=== PATIENT | female | born 1990 | race Caucasian/White ===

== ENCOUNTER 2017-08-30 07:43 | Outpatient (CLI) | payer SELFPAY | END 2017-08-30 07:44 | disposition home or self-care (01) | LOC: BICULT 07:43 | DX: N63.11 Unspecified lump in the right breast, upper outer quadrant (principal) ==

== ENCOUNTER → 2017-09-12 | Outpatient (CLI) | payer OTHER | LOC: BICULT 12:48 → EDSTATUS 13:00 → BICULT 15:26 | DX: C50.412 Malignant neoplasm of upper-outer quadrant of left female breast (principal) | CPT/HCPCS: 19100; 76942; 77066; 88305; 88341; 88342; G0279 ==

== ENCOUNTER 2017-10-09 10:35 | Outpatient (CLI) | payer MEDICAID ==
[2017-10-09 11:45] LABS: #Basophils 0.1 thou/uL (0.0-0.2); #Eosinphils 0.2 thou/uL (0.0-0.7); #Lymphocytes 2.8 thou/uL (1.20-3.40); #Monocytes 0.7 thou/uL (0.11-0.59); #Neutrophils 7.9 thou/uL (1.40-6.50); %Basophils 0.9 % (0.0-1.0); %Eosinophils 1.4 % (0.0-10.0); %Monocytes 6.2 % (0.0-10.0); %Neutrophils 67.5 % (42.0-75.0); Hemoglobin 13.9 g/dL (12.0-16.0); Mean Corpuscular HGB CONC 32.9 g/dL (32.0-36.0); Mean Corpuscular Hemoglobin 29.8 pg (27.0-31.0); Mean Corpuscular Volume 90.6 fl (81.0-99.0); Mean Platelet Volume 7.7 fL (7.4-10.4); Platelet Count 293 thou/uL (130-400); RBC Distribution Width 12.7 % (11.5-14.5); Red Blood Cell (RBC) Count 4.67 mill/uL (4.20-5.40); White Blood Cell (WBC) Count 11.7 thou/uL (4.8-10.8)
[2017-10-09 11:54] LABS: BHCG - Serum Negative (NEGATIVE); Pregs Control Background? CLEAR/WHITE (CLR/WHITE); Pregs Control Bar Appear? YES (CONTROL BAR)
[2017-10-09 12:01] LABS: Anion Gap 11 mmol/L (10-20); BUN (Urea Nitrogen) 8 mg/dL (7.0-18.7); Calc. Creatinine Clearance 0 mL/min (70-130); Calcium 9.5 mg/dL (7.8-10.44); Carbon Dioxide 23 mmol/L (22-29); Chloride 106 mmol/L (98-107); Estimated GFR-MDRD Greater than 90; Glucose 86 mg/dL (70-105); Potassium 3.6 mmol/L (3.5-5.1); Sodium 136 mmol/L (136-145)
== END 2017-10-09 10:36 | disposition home or self-care (01) ==
LOC: LABBT 10:35
PROVIDERS: ATTEND Surgery
DX: Z01.812 Encounter for preprocedural laboratory examination (principal); C50.912 Malignant neoplasm of unspecified site of left female breast
CPT/HCPCS: 80048; 84703; 85025; 88173

== ENCOUNTER 2017-10-11 08:19 | Day surgery (SDC) | payer MEDICAID ==
[2017-10-09 10:59] VITALS: BMI 27.4
[2017-10-11] MEDS ORDERED: Bupivacaine/Epinephrine 0.25% 30 ML VIAL ONE (10:00)
[2017-10-11] MEDS ORDERED: Lidocaine 2% 10 ML INJ ONE (10:00)
[2017-10-11] MEDS ORDERED: Midazolam HCl 2 mg/2 ml Vial ONE (10:01)
[2017-10-11] MEDS ORDERED: CEFAZOLIN/Water 2 GM/20 ML SYRINGE ONE (10:02)
[2017-10-11] MEDS ORDERED: Ketorolac Tromethamine 30 MG/ML VIAL ONE (10:02)
[2017-10-11] MEDS ORDERED: Propofol 500 MG/50 ML VIAL ONE (10:03)
[2017-10-11] MEDS ORDERED: Fentanyl 100 MCG/2 ML VIAL ONE (10:03)
[2017-10-11] MEDS ORDERED: Dexamethasone 20 MG/5 ML VIAL ONE (13:31)
[2017-10-11] MEDS ORDERED: Ondansetron HCl/PF 4 MG/2 ML Vial ONE (13:31)
--- NOTE | 2017-10-11 14:19 | RAD ---
CHEST 1 VIEW: HISTORY: MediPort placement. FINDINGS: Cardiac silhouette is magnified. Pulmonary vasculature is accentuated by shallow inspiration. Media stinum is midline. The tip of a right subclavian central venous catheter projects over the superior vena cava. No evidence of pneumothorax. IMPRESSION: Right subclavian MediPort is in good radiographic position. POS: [facility]
--- NOTE | 2017-10-11 16:15 | PDOC.OP ---
Operative Note - Operative Note Operative Note: PROCEDURE: Right subclavian MediPort placement with fluoroscopic guidance, and left axillary lymph node clip placement with ultrasound guidance SURGEON: Brad Berumen M.D. DATE OF PROCEDURE: 10/12/27 PREOPERATIVE DIAGNOSIS: T2 N1 invasive ductal carcinoma of the left breast POSTOPERATIVE DIAGNOSIS: T2 N1 invasive ductal carcinoma of the left breast HISTORY: Patient is diagnosed with left breast cancer. Neoadjuvant chemotherapy has been recommended and the oncologist has requested MediPort placement for this. FNA of an enlarged left axillary lymph node was positive and I recommended clip placement to johnathon this lymph node for later pathologic examination at the time of her definitive surgery. OPERATIVE PROCEDURE IN DETAIL: After informed consent was obtained and appropriate preoperative antibiotics were administered, the patient was taken to the operating room and placed in supine position and monitored anesthesia care was administered. The patient was then placed in Trendelenburg position and the subclavian vein accessed easily on the first attempt with excellent flow of dark venous non-pulsatile blood. A wire threaded easily and was confirmed to be in the superior vena cava by fluoroscopy. Additional local anesthesia was infused to the skin and subcutaneous tissues lateral and inferior to the access site. The skin incision was extended from the wire laterally and a subcutaneous pocket developed inferiorly. A Mediport was obtained and confirmed to fit in the subcutaneous pocket. This was secured inferiorly to the pectoralis fascia with a Prolene suture, which was clamped, but not tied. The dilator and sheath were then placed over the wire and the dilator and wire removed leaving the sheath in place. The clamped MediPort tubing was tunneled through the sheath, which was then split and removed leaving the MediPort tubing in place. The tubing was adjusted until the tip was confirmed by fluoroscopy to be in the superior vena cava just above the atrium. The tubing was clamped at the skin level and cut and the tubing secured to the port, which was then placed in the subcutaneous pocket. The previously placed suture was secured and an additional suture placed to fix the port in place within the pocket. The port was aspirated with the Gray needle and had excellent flow of dark venous non-pulsatile blood and easily flushed without resistance. The subcutaneous tissues were closed with a running Monocryl suture, following which the skin was closed with a running subcuticular Monocryl suture. Dermabond dressings were placed and the hub was again accessed through the skin and confirmed to easily aspirate and easily flush. The course of the catheter was confirmed by fluoroscopy to be smooth with the tip appropriately located in the superior vena cava. Attention was then turned to the clip placement of the left axillary node. The node was identified using a sterile ultrasound probe and local anesthesia infused the skin and subcutaneous tissues superior to this. A small skin incision was made and the biopsy clip device advanced to the enlarged lymph node and deployed. The clip appeared to be in good position immediately anterior to the lymph node. Dermabond was placed at the skin incision. The patient was taken her back to the day stay unit in good condition. Estimated blood loss was minimal. There were no complications. There were no specimens.
== END 2017-10-11 12:22 | disposition home or self-care (01) ==
LOC: SDC 08:19
PROVIDERS: ATTEND Surgery
PROC: BH47ZZZ Ultrasonography of Upper Extremity (ICD-10-PCS; principal; 2017-10-11)
PROC: 02HV33Z Insertion of Infusion Device into Superior Vena Cava, Percutaneous Approach (ICD-10-PCS; principal; 2017-10-11)
PROC: B5181ZA Fluoroscopy of Superior Vena Cava using Low Osmolar Contrast, Guidance (ICD-10-PCS; principal; 2017-10-11)
DX: C50.912 Malignant neoplasm of unspecified site of left female breast (principal); F32.9 Major depressive disorder, single episode, unspecified; F60.3 Borderline personality disorder; F17.210 Nicotine dependence, cigarettes, uncomplicated; D64.9 Anemia, unspecified; R56.9 Unspecified convulsions; Z17.0 Estrogen receptor positive status [ER+]; Z79.899 Other long term (current) drug therapy; Z88.0 Allergy status to penicillin; Z91.040 Latex allergy status; Z98.890 Other specified postprocedural states
CPT/HCPCS: 71045; C1788; J0131; J1100; J1642; J1885; J2250; J2405; J2704; J3010

== ENCOUNTER 2017-10-17 09:00 | Day surgery (SDC) | payer MEDICAID ==
[2017-10-17] MEDS ORDERED: Sodium Chloride 0.9% 40 ML ONE (09:11)
[2017-10-17] MEDS ORDERED: Fosaprepitant Dimeglumine 150 MG, Admixture Fee 1 EACH in Sodium Chloride 0.9% 250 ML 1... IVPB SCH (09:15)
[2017-10-17] MEDS ORDERED: PALONOSETRON HCL 0.05 MG/ML 5 ML VIAL IVP SCH (09:15)
[2017-10-17] MEDS ORDERED: Pegfilgrastim 6 MG/0.6 ML Delivery Kit SQ SCH (09:15)
[2017-10-17] MEDS ORDERED: Dexamethasone 10 MG/ML VIAL SLOW IVP SCH (09:15)
[2017-10-17] MEDS ORDERED: Cyclophosphamide 1 GM, Admixture Fee 1 EACH in Sodium Chloride 0.9% 250 ML 250 ML IVPB SCH (09:30)
[2017-10-17] MEDS ORDERED: DOXORUBICIN IVPB SCH (09:30)
[2017-10-17] MEDS ORDERED: SODIUM CHLORIDE IVPB SCH (09:30)
[2017-10-17] MEDS ORDERED: ADMIXTURE FEE IVPB SCH (09:30)
[2017-10-17 09:55] VITALS: BP 120/73; TEMP 97.9
== END 2017-10-17 13:00 | disposition home or self-care (01) ==
LOC: ONC/OP 09:00
PROVIDERS: ATTEND Internal Medicine Hematology & Oncology
DX: Z51.11 Encounter for antineoplastic chemotherapy (principal); C50.412 Malignant neoplasm of upper-outer quadrant of left female breast; F41.9 Anxiety disorder, unspecified; D63.0 Anemia in neoplastic disease; F41.8 Other specified anxiety disorders; F17.210 Nicotine dependence, cigarettes, uncomplicated; Z17.0 Estrogen receptor positive status [ER+]; Z79.899 Other long term (current) drug therapy; Z88.0 Allergy status to penicillin; Z91.040 Latex allergy status
CPT/HCPCS: 36415; 80053; 82248; 83615; 84100; 84550; 96372; 96375; 96377; 96413; 96417; A4216; J1100; J1453; J1642; J2469; J2505; J7050; J9000; J9070

== ENCOUNTER 2017-10-31 08:53 | Day surgery (SDC) | payer MEDICAID ==
[2017-10-31] MEDS ORDERED: Pegfilgrastim 6 MG/0.6 ML Delivery Kit SQ SCH (09:15)
[2017-10-31] MEDS ORDERED: Cyclophosphamide 1 GM, Admixture Fee 1 EACH in Sodium Chloride 0.9% 250 ML 250 ML IVPB SCH (09:15)
[2017-10-31] MEDS ORDERED: Dexamethasone 10 MG/ML VIAL SLOW IVP SCH (09:15)
[2017-10-31] MEDS ORDERED: PALONOSETRON HCL 0.05 MG/ML 5 ML VIAL IVP SCH (09:15)
[2017-10-31 09:26] VITALS: BP 105/59; TEMP 98.5
[2017-10-31] MEDS ORDERED: DOXORUBICIN IVPB SCH (09:30)
[2017-10-31] MEDS ORDERED: SODIUM CHLORIDE IVPB SCH (09:30)
[2017-10-31] MEDS ORDERED: ADMIXTURE FEE IVPB SCH (09:30)
[2017-10-31] MEDS ORDERED: Sodium Chloride 0.9% 50 ML ONE (09:46)
== END 2017-10-31 13:35 | disposition home or self-care (01) ==
LOC: ONC/OP 08:53
PROVIDERS: ATTEND Internal Medicine Hematology & Oncology
DX: Z51.11 Encounter for antineoplastic chemotherapy (principal); C50.412 Malignant neoplasm of upper-outer quadrant of left female breast; F41.3 Other mixed anxiety disorders; F17.210 Nicotine dependence, cigarettes, uncomplicated; Z17.0 Estrogen receptor positive status [ER+]; Z88.1 Allergy status to other antibiotic agents; Z98.890 Other specified postprocedural states
CPT/HCPCS: 36415; 80053; 82248; 83615; 84100; 84550; 96367; 96375; 96377; 96413; 96417; A4216; J1100; J1453; J1642; J2469; J2505; J7050; J9000; J9070

== ENCOUNTER 2017-11-14 10:38 | Day surgery (SDC) | payer OTHER ==
[2017-11-14] MEDS ORDERED: Sodium Chloride 0.9% 40 ML ONE (11:12)
[2017-11-14 11:27] VITALS: BP 108/73; TEMP 98.5
[2017-11-14] MEDS ORDERED: Fosaprepitant Dimeglumine 150 MG in Sodium Chloride 0.9% 100 ML IVPB SCH (11:45)
[2017-11-14] MEDS ORDERED: Cyclophosphamide 1 GM in Sodium Chloride 0.9% 250 ML 250 ML IVPB SCH (11:45)
[2017-11-14] MEDS ORDERED: SODIUM CHLORIDE 0.9% IVPB SCH (11:45)
[2017-11-14] MEDS ORDERED: Dexamethasone 10 MG/ML VIAL SLOW IVP SCH (11:45)
[2017-11-14] MEDS ORDERED: CYCLOPHOSPHAMIDE IVPB SCH (11:45)
[2017-11-14] MEDS ORDERED: PALONOSETRON HCL 0.05 MG/ML 5 ML VIAL IVP SCH (11:45)
[2017-11-14] MEDS ORDERED: DOXORUBICIN 100 MG in Sodium Chloride 0.9% 50 ML SLOW IVP SCH (11:45)
[2017-11-14] MEDS ORDERED: Pegfilgrastim 6 MG/0.6 ML Delivery Kit SQ SCH (11:45)
== END 2017-11-14 14:06 | disposition home or self-care (01) ==
LOC: ONC/OP 10:38
PROVIDERS: ATTEND Internal Medicine Hematology & Oncology
DX: Z51.11 Encounter for antineoplastic chemotherapy (principal); C50.412 Malignant neoplasm of upper-outer quadrant of left female breast; C77.3 Secondary and unspecified malignant neoplasm of axilla and upper limb lymph nodes; F41.8 Other specified anxiety disorders; F17.210 Nicotine dependence, cigarettes, uncomplicated; D64.89 Other specified anemias; Z17.0 Estrogen receptor positive status [ER+]; Z79.899 Other long term (current) drug therapy
CPT/HCPCS: 96367; 96375; 96377; 96413; 96417; A4216; J1100; J1453; J1642; J2469; J2505; J7050; J9000; J9070

== ENCOUNTER 2017-11-28 11:16 | Day surgery (SDC) | payer OTHER ==
[2017-11-28] MEDS ORDERED: Sodium Chloride 0.9% 40 ML ONE (11:28)
[2017-11-28] MEDS ORDERED: Dexamethasone 10 MG/ML VIAL SLOW IVP SCH (11:30)
[2017-11-28] MEDS ORDERED: Pegfilgrastim 6 MG/0.6 ML Delivery Kit SQ SCH (11:30)
[2017-11-28] MEDS ORDERED: PALONOSETRON HCL 0.05 MG/ML 5 ML VIAL IVP SCH (11:45)
[2017-11-28] MEDS ORDERED: Fosaprepitant Dimeglumine 150 MG in Sodium Chloride 0.9% 100 ML IVPB SCH (11:45)
[2017-11-28] MEDS ORDERED: DOXORUBICIN 100 MG in Sodium Chloride 0.9% 50 ML SLOW IVP SCH (11:45)
[2017-11-28] MEDS ORDERED: Cyclophosphamide 1 GM in Sodium Chloride 0.9% 250 ML 250 ML IVPB SCH (11:45)
[2017-11-28 12:04] VITALS: BP 119/79; TEMP 97.4
== END 2017-11-28 15:03 | disposition home or self-care (01) ==
LOC: ONC/OP 11:16
PROVIDERS: ATTEND Internal Medicine Hematology & Oncology
DX: Z51.11 Encounter for antineoplastic chemotherapy (principal); C50.412 Malignant neoplasm of upper-outer quadrant of left female breast; F41.3 Other mixed anxiety disorders; Z17.0 Estrogen receptor positive status [ER+]; Z88.0 Allergy status to penicillin; Z91.040 Latex allergy status
CPT/HCPCS: 36415; 80053; 82248; 83615; 84100; 84550; 96367; 96375; 96377; 96413; 96417; A4216; J1100; J1453; J1642; J2469; J2505; J7050; J9000; J9070

== ENCOUNTER 2017-12-12 10:57 | Day surgery (SDC) | payer OTHER ==
[2017-12-12] MEDS ORDERED: Ondansetron 2MG/ML MDV 10 MG, Dexamethasone 10 MG in Sodium Chloride 0.9% 50 ML IVP SCH (11:15)
[2017-12-12] MEDS ORDERED: PACLITAXEL IVPB SCH (11:15)
[2017-12-12] MEDS ORDERED: SODIUM CHLORIDE 0.9% IVPB SCH (11:15)
[2017-12-12] MEDS ORDERED: Sodium Chloride 0.9% 30 ML ONE (11:17)
[2017-12-12 12:08] VITALS: BP 117/71; TEMP 98.2
== END 2017-12-12 13:41 | disposition home or self-care (01) ==
LOC: ONC/OP 10:57
PROVIDERS: ATTEND Internal Medicine Hematology & Oncology
DX: Z51.11 Encounter for antineoplastic chemotherapy (principal); C50.412 Malignant neoplasm of upper-outer quadrant of left female breast; D64.89 Other specified anemias; Z88.0 Allergy status to penicillin; Z79.899 Other long term (current) drug therapy
CPT/HCPCS: 96367; 96413; A4216; J1100; J1642; J2405; J7050; J9267

== ENCOUNTER 2017-12-19 10:17 | Day surgery (SDC) | payer OTHER ==
[2017-12-19] MEDS ORDERED: Sodium Chloride 0.9% 30 ML ONE (10:25)
[2017-12-19] MEDS ORDERED: SODIUM CHLORIDE 0.9% IVPB SCH (10:30)
[2017-12-19] MEDS ORDERED: PACLITAXEL IVPB SCH (10:30)
[2017-12-19] MEDS ORDERED: Ondansetron 2MG/ML MDV 10 MG, Dexamethasone 10 MG in Sodium Chloride 0.9% 50 ML IVP SCH (10:30)
[2017-12-19 11:25] VITALS: BP 119/69; TEMP 98.7
== END 2017-12-19 12:51 | disposition home or self-care (01) ==
LOC: ONC/OP 10:17
PROVIDERS: ATTEND Internal Medicine Hematology & Oncology
DX: Z51.11 Encounter for antineoplastic chemotherapy (principal); C50.412 Malignant neoplasm of upper-outer quadrant of left female breast; D64.89 Other specified anemias; F41.3 Other mixed anxiety disorders; F17.210 Nicotine dependence, cigarettes, uncomplicated; Z88.0 Allergy status to penicillin; Z17.0 Estrogen receptor positive status [ER+]
CPT/HCPCS: 96375; 96413; A4216; J1100; J1642; J2405; J7050; J9267

== ENCOUNTER 2017-12-26 11:03 | Day surgery (SDC) | payer OTHER ==
[2017-12-26] MEDS ORDERED: SODIUM CHLORIDE 0.9% IVPB SCH (11:30)
[2017-12-26] MEDS ORDERED: Ondansetron 2MG/ML MDV 10 MG, Dexamethasone 10 MG in Sodium Chloride 0.9% 50 ML IVP SCH (11:30)
[2017-12-26] MEDS ORDERED: PACLITAXEL IVPB SCH (11:30)
[2017-12-26] MEDS ORDERED: Ondansetron 2MG/ML MDV 10 MG, Dexamethasone 4 MG in Sodium Chloride 0.9% 50 ML IVP SCH (11:45)
[2017-12-26 13:01] VITALS: BP 98/63; TEMP 98.1
== END 2017-12-26 14:29 | disposition home or self-care (01) ==
LOC: ONC/OP 11:03
PROVIDERS: ATTEND Internal Medicine Hematology & Oncology
DX: Z51.11 Encounter for antineoplastic chemotherapy (principal); C50.412 Malignant neoplasm of upper-outer quadrant of left female breast; D64.89 Other specified anemias; Z88.0 Allergy status to penicillin; Z79.899 Other long term (current) drug therapy
CPT/HCPCS: 96375; 96413; J1100; J2405; J7050; J9267

== ENCOUNTER 2018-01-02 09:29 | Day surgery (SDC) | payer OTHER ==
[2018-01-02 10:08] VITALS: BP 109/71; TEMP 98.2
[2018-01-02] MEDS ORDERED: Sodium Chloride 0.9% 40 ML ONE (10:14)
[2018-01-02] MEDS ORDERED: Dexamethasone 4 mg/ml Vial SLOW IVP SCH (10:30)
[2018-01-02] MEDS ORDERED: PACLITAXEL IVPB SCH (10:30)
[2018-01-02] MEDS ORDERED: Ondansetron HCl/PF 4 MG/2 ML Vial IVP SCH ×2 (10:30)
[2018-01-02] MEDS ORDERED: Dexamethasone 10 MG/ML VIAL SLOW IVP SCH (10:30)
[2018-01-02] MEDS ORDERED: SODIUM CHLORIDE 0.9% IVPB SCH (10:30)
[2018-01-02] MEDS ORDERED: Dexamethasone 4 MG, Ondansetron 2MG/ML MDV 10 MG in Sodium Chloride 0.9% 50 ML SLOW IVP SCH (11:00)
== END 2018-01-02 15:47 | disposition home or self-care (01) ==
LOC: ONC/OP 09:29
PROVIDERS: ATTEND Internal Medicine Hematology & Oncology
DX: Z51.11 Encounter for antineoplastic chemotherapy (principal); C50.412 Malignant neoplasm of upper-outer quadrant of left female breast; C77.3 Secondary and unspecified malignant neoplasm of axilla and upper limb lymph nodes; F41.3 Other mixed anxiety disorders; D64.89 Other specified anemias; F17.210 Nicotine dependence, cigarettes, uncomplicated; Z17.0 Estrogen receptor positive status [ER+]; Z88.0 Allergy status to penicillin
CPT/HCPCS: 96375; 96413; A4216; J1100; J1642; J2405; J7050; J9267

== ENCOUNTER 2018-01-09 10:40 | Day surgery (SDC) | payer OTHER ==
[2018-01-09] MEDS ORDERED: Sodium Chloride 0.9% 30 ML ONE (10:51)
[2018-01-09] MEDS ORDERED: PACLITAXEL IVPB SCH (11:15)
[2018-01-09] MEDS ORDERED: SODIUM CHLORIDE 0.9% IVPB SCH (11:15)
[2018-01-09] MEDS ORDERED: Ondansetron 2MG/ML MDV 10 MG, Dexamethasone 4 MG in Sodium Chloride 0.9% 50 ML IVPB SCH (11:15)
== END 2018-01-09 14:04 | disposition home or self-care (01) ==
LOC: ONC/OP 10:40
PROVIDERS: ATTEND Internal Medicine Hematology & Oncology
DX: Z51.11 Encounter for antineoplastic chemotherapy (principal); C50.412 Malignant neoplasm of upper-outer quadrant of left female breast; C77.3 Secondary and unspecified malignant neoplasm of axilla and upper limb lymph nodes; D64.89 Other specified anemias; F41.3 Other mixed anxiety disorders; F17.210 Nicotine dependence, cigarettes, uncomplicated; Z88.0 Allergy status to penicillin; Z17.0 Estrogen receptor positive status [ER+]
CPT/HCPCS: 36415; 80053; 82248; 83615; 84100; 84550; 96375; 96413; A4216; J1100; J1642; J2405; J7050; J9267

== ENCOUNTER 2018-01-23 10:03 | Day surgery (SDC) | payer OTHER ==
[2018-01-23] MEDS ORDERED: Sodium Chloride 0.9% 30 ML ONE (10:12)
[2018-01-23] MEDS ORDERED: Ondansetron 2MG/ML MDV 10 MG, Dexamethasone 4 MG in Sodium Chloride 0.9% 50 ML IVP SCH (10:15)
[2018-01-23] MEDS ORDERED: PACLITAXEL IVPB SCH (10:15)
[2018-01-23] MEDS ORDERED: SODIUM CHLORIDE 0.9% IVPB SCH (10:15)
[2018-01-23 10:54] VITALS: BP 117/73; TEMP 98.5
== END 2018-01-23 12:50 | disposition home or self-care (01) ==
LOC: ONC/OP 10:03
PROVIDERS: ATTEND Internal Medicine Hematology & Oncology
DX: Z51.11 Encounter for antineoplastic chemotherapy (principal); C50.412 Malignant neoplasm of upper-outer quadrant of left female breast; C77.3 Secondary and unspecified malignant neoplasm of axilla and upper limb lymph nodes; F41.3 Other mixed anxiety disorders; D64.89 Other specified anemias; F17.210 Nicotine dependence, cigarettes, uncomplicated; Z17.0 Estrogen receptor positive status [ER+]; Z88.0 Allergy status to penicillin
CPT/HCPCS: 96375; 96413; A4216; J1100; J1642; J2405; J7050; J9267

== ENCOUNTER 2018-01-30 10:02 | Day surgery (SDC) | payer OTHER ==
[2018-01-30] MEDS ORDERED: Sodium Chloride 0.9% 30 ML ONE (10:47)
[2018-01-30] MEDS ORDERED: PACLITAXEL IVPB SCH (11:30)
[2018-01-30] MEDS ORDERED: SODIUM CHLORIDE 0.9% IVPB SCH (11:30)
[2018-01-30] MEDS ORDERED: Dexamethasone 4 mg/ml Vial SLOW IVP SCH (11:30)
[2018-01-30] MEDS ORDERED: Ondansetron HCl/PF 4 MG/2 ML Vial SLOW IVP SCH (11:30)
[2018-01-30] MEDS ORDERED: Dexamethasone 4 MG, Ondansetron 2MG/ML MDV 10 MG in Sodium Chloride 0.9% 50 ML IVPB SCH (11:45)
[2018-01-30 12:46] VITALS: BP 111/66; TEMP 98.8
== END 2018-01-30 13:49 | disposition home or self-care (01) ==
LOC: ONC/OP 10:02
PROVIDERS: ATTEND Internal Medicine Hematology & Oncology
DX: Z51.11 Encounter for antineoplastic chemotherapy (principal); C50.412 Malignant neoplasm of upper-outer quadrant of left female breast; C77.3 Secondary and unspecified malignant neoplasm of axilla and upper limb lymph nodes; D64.89 Other specified anemias; F41.3 Other mixed anxiety disorders; F17.210 Nicotine dependence, cigarettes, uncomplicated; Z88.0 Allergy status to penicillin; Z17.0 Estrogen receptor positive status [ER+]
CPT/HCPCS: 96367; 96413; A4216; J1100; J1642; J2405; J7050; J9267

== ENCOUNTER 2018-02-06 10:33 | Day surgery (SDC) | payer OTHER ==
[2018-02-06] MEDS ORDERED: Sodium Chloride 0.9% 30 ML ONE (10:42)
[2018-02-06 10:52] VITALS: BP 118/72; TEMP 97.9
[2018-02-06] MEDS ORDERED: Dexamethasone 4 MG, Ondansetron 2MG/ML MDV 10 MG in Sodium Chloride 0.9% 50 ML SLOW IVP SCH (11:15)
[2018-02-06] MEDS ORDERED: PACLITAXEL IVPB SCH (11:15)
[2018-02-06] MEDS ORDERED: ONDANSETRON IVPB SCH (11:15)
[2018-02-06] MEDS ORDERED: SODIUM CHLORIDE 0.9% IVPB SCH ×2 (11:15)
[2018-02-06] MEDS ORDERED: DEXAMETHASONE IVPB SCH (11:15)
[2018-02-06] MEDS ORDERED: Dexamethasone 4 mg/ml Vial ONE (12:42)
[2018-02-06] MEDS: Dexamethasone 4 mg/ml Vial ONE (12:54)
[2018-02-06] MEDS ORDERED: diphenhydrAMINE 50 MG/ML VIAL IVP SCH (13:00)
[2018-02-06] MEDS ORDERED: Dexamethasone 10 MG/ML VIAL SLOW IVP SCH (13:00)
[2018-02-06] MEDS ORDERED: Sodium Chloride 0.9% 1,000 ML IV SCH (13:00)
[2018-02-06] MEDS ORDERED: Sodium Chloride 0.9% 10 ML ONE (13:26)
== END 2018-02-06 13:45 | disposition home or self-care (01) ==
LOC: ONC/OP 10:33
PROVIDERS: ATTEND Internal Medicine Hematology & Oncology
DX: Z51.11 Encounter for antineoplastic chemotherapy (principal); C50.412 Malignant neoplasm of upper-outer quadrant of left female breast; D64.89 Other specified anemias; F17.200 Nicotine dependence, unspecified, uncomplicated; Z88.0 Allergy status to penicillin; Z79.899 Other long term (current) drug therapy
CPT/HCPCS: 96375; 96413; 99212; A4216; G0463; J1100; J1642; J2405; J7050; J9267

== ENCOUNTER 2018-02-20 07:34 | Day surgery (SDC) | payer OTHER ==
[2018-02-14 10:48] VITALS: BMI 27.4
[2018-02-20] MEDS ORDERED: Lidocaine-Prilocaine 2.5% Cream 5 GM TUBE ONE (08:11)
[2018-02-20] MEDS ORDERED: CEFAZOLIN/Water 2 GM/20 ML SYRINGE ONE (08:45)
[2018-02-20] MEDS ORDERED: Bupivacaine/Epinephrine 0.25% 30 ML VIAL ONE ×2 (10:47→14:27)
[2018-02-20] MEDS ORDERED: Lidocaine 2% 10 ML INJ ONE (10:47)
[2018-02-20] MEDS ORDERED: Fentanyl 100 MCG/2 ML VIAL ONE ×2 (10:55→15:21)
[2018-02-20] MEDS ORDERED: Dexamethasone 20 MG/5 ML VIAL ONE (15:24)
[2018-02-20] MEDS ORDERED: Glycopyrrolate 0.2 MG/ML 5 ML SYRINGE ONE (15:24)
[2018-02-20] MEDS ORDERED: Ondansetron HCl/PF 4 MG/2 ML Vial ONE (15:24)
[2018-02-20] MEDS ORDERED: Lidocaine 1% PF 5 ML VIAL ONE (15:24)
[2018-02-20] MEDS ORDERED: PROPOFOL 200 MG/20 ML VIAL ONE (15:24)
[2018-02-20] MEDS ORDERED: PHENYLEPHRINE-NS 100 MCG/ML 10 ML SYRINGE ONE (15:24)
[2018-02-20] MEDS ORDERED: Morphine 4 MG/ML VIAL ONE (16:13)
[2018-02-20] MEDS ORDERED: HYDROcodone/Acetaminophen 5/325 mg Tablet ONE (16:56)
[2018-02-20] MEDS ORDERED: Sodium Chloride 0.9% 10 ML ONE (17:35)
--- NOTE | 2018-02-26 16:15 | PDOC.OP ---
Operative Note - Operative Note Operative Note: PROCEDURE: Left breast lumpectomy and axillary dissection. DATE OF PROCEDURE: 02/20/2018. SURGEON: Brad Berumen M.D. PREOPERATIVE DIAGNOSES: Breast cancer, node positive, status post neoadjuvant chemotherapy POSTOPERATIVE DIAGNOSIS: Breast cancer, node positive, status post neoadjuvant chemotherapy HISTORY: Patient is diagnosed with invasive ductal cancer of the left breast, which was lymph node positive by FNA.. She has decided to undergo breast conservation therapy. Axillary dissection was recommended due to known positive lymph node. PROCEDURE IN DETAIL: Informed consent was obtained and appropriate preoperative antibiotics administered. The patient was taken to the operating room and placed in supine position and anesthesia was administered. She was then prepped and draped in the standard sterile fashion and local anesthesia infused the skin and subcutaneous tissues of the axilla. An incision was made over the lower edge of the hair-bearing skin of the axilla and dissection carried down to the true axilla. Dissection was carried down to the axillary vein which was identified. The lymph node bearing tissue was swept down off of the chest wall until the long thoracic nerve was encountered. This was carefully dissected free of the axillary tissues and preserved. The latissimus dorsi muscle was then exposed laterally and the long thoracic nerve and vein identified and dissected free of the axillary tissue laterally, preserving both the structures. The node bearing tissue was then swept inferiorly and dissected free , with division of a few intercostal brachial nerves which were traversing through the tissue. The long thoracic and thoracodorsal nerves were gently stimulated with DeBakey forceps and confirmed to cause contraction of their corresponding muscles. The axillary wound was irrigated and examined for hemostasis which was excellent. No additional palpable lymph nodes were palpated in the axilla. A KAYCEE drain was placed and secured to the skin. Additional local anesthesia was infused circumferentially for postoperative pain management and the subcutaneous tissues were closed with 3-0 Monocryl suture and the skin closed with 4-0 subcuticular Monocryl suture. Attention was then turned to the lumpectomy. The margins of the mass were identified by ultrasound and marked on the skin. Local anesthesia was infused circumferentially. An incision was made over the mass and flaps raised through the subcutaneous tissues. The breast tissue surrounding the mass was then excised maintaining a distance of about 2-3 cm from the palpable mass in all directions. The specimen was removed and oriented for pathology with a long lateral, short superior, and looped superficial suture. The wound was palpated and some thickened and slightly nodular tissue identified in the deep inferior wound, so an additional margin was taken from this area. This was also oriented with a long lateral short superior and looped superficial suture and sent as a separate specimen. The wound was irrigated and hemostasis obtained with Bovie electrocautery. Additional local anesthesia was infused for postoperative pain management and the subcutaneous tissues were reapproximated with 3-0 Monocryl sutures. Additional local anesthesia was infused into the biopsy cavity and the skin was closed with 4-0 subcuticular Monocryl sutures. Dermabond was placed to both incisions. Estimated blood loss minimal. There were no complications. SPECIMENS: Left breast mass with extended inferior posterior margin, and left axillary contents
== END 2018-02-20 18:13 | disposition home or self-care (01) ==
LOC: SDC 07:34
PROVIDERS: ATTEND Surgery
PROC: 07T60ZZ Resection of Left Axillary Lymphatic, Open Approach (ICD-10-PCS; principal; 2018-02-20)
PROC: 0HBU0ZZ Excision of Left Breast, Open Approach (ICD-10-PCS; principal; 2018-02-20)
DX: C50.812 Malignant neoplasm of overlapping sites of left female breast (principal); C77.3 Secondary and unspecified malignant neoplasm of axilla and upper limb lymph nodes; F60.3 Borderline personality disorder; F32.9 Major depressive disorder, single episode, unspecified; F17.210 Nicotine dependence, cigarettes, uncomplicated; Z92.21 Personal history of antineoplastic chemotherapy; Z17.0 Estrogen receptor positive status [ER+]; Z79.899 Other long term (current) drug therapy; Z88.0 Allergy status to penicillin; Z88.8 Allergy status to other drugs, medicaments and biological substances; Z91.041 Radiographic dye allergy status
CPT/HCPCS: 88305; 88307; 88309; 96374; J1100; J1642; J2001; J2270; J2405; J2704; J3010

== ENCOUNTER 2018-07-27 16:10 | Emergency (ER) | payer OTHER ==
[2018-07-27 16:48] LABS: Bilirubin Negative (Negative); Blood, Urine Negative (Negative); Clarity CLOUDY (Clear); Glucose, Urine (Dipstick) Negative (Negative); Leukocyte Negative (Negative); Nitrite Negative (Negative); Protein, Urine (Dipstick) Negative (Neg-Trace); Urobilinogen 0.2 mg/dL (0.2-1.0); pH, Urine 7.5 (5.0-9.0)
[2018-07-27 16:53] LABS: Pregnancy Test - Urine (BHCG) Negative (Negative); Pregu Control Background? CLEAR/WHITE (CLR/WHITE); Pregu Control Bar Appear? YES (CONTROL BAR)
[2018-07-27 17:37] LABS: #Basophils 0.1 thou/uL (0.0-0.2); #Eosinphils 0.2 thou/uL (0.0-0.7); #Lymphocytes 1.3 thou/uL (1.20-3.40); #Monocytes 0.5 thou/uL (0.11-0.59); #Neutrophils 3.8 thou/uL (1.40-6.50); %Basophils 1.4 % (0.0-1.0); %Eosinophils 2.9 % (0.0-10.0); %Lymphocytes 22.7 % (21.0-51.0); %Monocytes 8.2 % (0.0-10.0); %Neutrophils 64.8 % (42.0-75.0); Hemoglobin 12.1 g/dL (12.0-16.0); Mean Corpuscular HGB CONC 34.7 g/dL (32.0-36.0); Mean Corpuscular Hemoglobin 32.4 pg (27.0-31.0); Mean Corpuscular Volume 93.6 fL (78.0-98.0); Mean Platelet Volume 7.1 fL (7.4-10.4); Platelet Count 232 thou/uL (130-400); RBC Distribution Width 16.2 % (11.5-14.5); Red Blood Cell (RBC) Count 3.73 mill/uL (4.20-5.40); White Blood Cell (WBC) Count 5.9 thou/uL (4.8-10.8)
[2018-07-27 17:58] LABS: ALT (SGPT) 21 U/L (8-55); AST (SGOT) 19 U/L (5-34); Albumin 4.1 g/dL (3.5-5.0); Alkaline Phosphatase 128 U/L (40-150); Anion Gap 11 mmol/L (10-20); BUN (Urea Nitrogen) 20 mg/dL (7.0-18.7); Bilirubin, Total 0.2 mg/dL (0.2-1.2); Calc. Creatinine Clearance 0 mL/min (70-130); Calcium 9.2 mg/dL (7.8-10.44); Carbon Dioxide 20 mmol/L (22-29); Chloride 114 mmol/L (98-107); Estimated GFR-MDRD Greater than 90; Globulin 2.7 g/dL (2.4-3.5); Glucose 96 mg/dL (70-105); Potassium 3.4 mmol/L (3.5-5.1); Protein, Total 6.8 g/dL (6.0-8.3); Sodium 142 mmol/L (136-145)
--- NOTE | 2018-07-27 19:24 | CT ---
CT BRAIN 07/27/18 PROVIDED CLINICAL HISTORY: Headache. FINDINGS: Comparison 03/26/02. The ventricular system is normal in size and morphology. There is no evidence for intracranial hemorr vasiliy or mass effect. The extracranial soft tissues and osseous structures demonstrate an unremarkable CT appearance. IMPRESSION: No evidence for intracranial hemorrhage or mass effect. POS: [facility]
== END 2018-07-27 18:45 | disposition home or self-care (01) ==
LOC: ERS 16:10
DX: R53.81 Other malaise (principal); C50.919 Malignant neoplasm of unspecified site of unspecified female breast; F31.9 Bipolar disorder, unspecified; F17.210 Nicotine dependence, cigarettes, uncomplicated; G40.909 Epilepsy, unspecified, not intractable, without status epilepticus; Z79.899 Other long term (current) drug therapy
CPT/HCPCS: 70450; 80053; 81003; 81025; 85025

== ENCOUNTER 2018-10-16 20:55 | Emergency (ER) | payer OTHER | END 2018-10-16 22:43 | disposition left against medical advice (07) | LOC: ERS 20:55 | DX: Z53.21 Procedure and treatment not carried out due to patient leaving prior to being seen by health care provider (principal) ==

== ENCOUNTER 2018-10-19 07:55 | Outpatient (CLI) | payer OTHER ==
--- NOTE | 2018-10-19 09:03 | MMO ---
Bilateral MAMMO Bilat Diag DDI+NENA. CLINICAL HISTORY: Patient is 28 years old and is seen for diagnostic exam. The patient has no family history of breast cancer. The patient has a history of Fine Needle Aspiration procedure revealed metastatic carcinoma in the left axilla in October, and malignant (generic) in the left breast in 2018. The patient has a history of left Lumpectomy in 2018 - malignant. VIEWS: The views performed were: bilateral craniocaudal with tomosynthesis; bilateral mediolateral oblique with tomosynthesis; bilateral mediolateral; and bilateral exaggerated craniocaudal. FILMS COMPARED: The present examination has been compared to prior imaging studies performed at [facility] on 09/12/2017 and 10/19/2018. MAMMOGRAM FINDINGS: The breasts are heterogeneously dense, which could obscure a lesion on mammography. There are no mammographic or sonographic abnormalities in the area of palpable concern. The patient is referred back to her clinician. Negative imaging findings should not preclude biopsy if clinical findings are suspicious. There are no suspicious masses, suspicious calcifications, or new areas of architectural distortion. IMPRESSION: THERE IS NO MAMMOGRAPHIC EVIDENCE OF MALIGNANCY. THE RESULTS OF THIS EXAM WERE SENT TO THE PATIENT. ACR BI-RADS Category 2 - Benign finding MAMMOGRAPHY NOTE: 1. A negative mammogram report should not delay a biopsy if a dominant of clinically suspicious mass is present. 2. Approximately 10% to 15% of breast cancers are not detected by mammography. 3. Adenosis and dense breasts may obscure an underlying neoplasm.
--- NOTE | 2018-10-19 09:31 | ULT ---
LIMITED LEFT BREAST ULTRASOUND: Date: 10/19/18 PROVIDED CLINICAL HISTORY: Left breast palpable abnormality. FINDINGS: Limited sonographic interrogation was performed of the left breast at the 12 o'clock position in the region of palpable concern. The sonographic appearance of the breast tissue in this region appears no rmal. IMPRESSION: No sonographic or mammographic abnormalities are present in the region of palpable concern. Negative imaging findings should not preclude further evaluation of a clinically suspicious area. The patient is referred back to her clinician. BIRADS Category 2 - Benign findings. POS: [facility]
== END 2018-10-19 07:56 | disposition home or self-care (01) ==
LOC: BICMAMMO 07:55
PROVIDERS: ATTEND Internal Medicine Hematology & Oncology
DX: C50.412 Malignant neoplasm of upper-outer quadrant of left female breast (principal)
CPT/HCPCS: 77066; G0279

== ENCOUNTER 2019-03-17 16:03 | Emergency (ER) | payer OTHER ==
--- NOTE | 2019-03-17 17:48 | ULT ---
EXAM: Left upper extremity venous ultrasound HISTORY: Left upper extremity pain and edema COMPARISON: None TECHNIQUE: Multiplanar grayscale and color Doppler images were obtained in a left upper extremity nate ous ultrasound. Spectral analysis of the Doppler waveforms were performed. FINDINGS: The internal jugular vein demonstrates normal compression and flow without evidence of thrombus. The subclavian vein demonstrates normal flow and augmentation without evidence of thrombus. The axillary and brachial veins demonstrate normal compression, flow, and augmentation without eviden ce of thrombus. The venous structures distal to the elbow are patent without thrombus. The cephalic and basilic veins are patent. IMPRESSION: No evidence of DVT.
[2019-03-17 17:49] LABS: #Basophils 0.1 thou/uL (0.0-0.2); #Eosinphils 0.1 thou/uL (0.0-0.7); #Lymphocytes 1.9 thou/uL (1.20-3.40); #Monocytes 0.8 thou/uL (0.11-0.59); #Neutrophils 7.5 thou/uL (1.40-6.50); %Basophils 0.8 % (0.0-1.0); %Eosinophils 1.2 % (0.0-10.0); %Lymphocytes 17.9 % (21.0-51.0); %Monocytes 7.3 % (0.0-10.0); %Neutrophils 72.8 % (42.0-75.0); Hemoglobin 13.9 g/dL (12.0-16.0); Mean Corpuscular HGB CONC 33.8 g/dL (32.0-36.0); Mean Corpuscular Hemoglobin 31.1 pg (27.0-31.0); Mean Corpuscular Volume 92.2 fL (78.0-98.0); Mean Platelet Volume 7.9 fL (7.4-10.4); Platelet Count 196 thou/uL (130-400); RBC Distribution Width 12.8 % (11.5-14.5); Red Blood Cell (RBC) Count 4.46 mill/uL (4.20-5.40); White Blood Cell (WBC) Count 10.3 thou/uL (4.8-10.8)
[2019-03-17 18:08] LABS: ALT (SGPT) 15 U/L (8-55); AST (SGOT) 18 U/L (5-34); Albumin 4.3 g/dL (3.5-5.0); Alkaline Phosphatase 64 U/L (40-150); Anion Gap 13 mmol/L (10-20); BUN (Urea Nitrogen) 7 mg/dL (7.0-18.7); Bilirubin, Total 0.3 mg/dL (0.2-1.2); Calc. Creatinine Clearance 0 mL/min (70-130); Calcium 9.1 mg/dL (7.8-10.44); Carbon Dioxide 19 mmol/L (22-29); Chloride 112 mmol/L (98-107); Estimated GFR-MDRD Greater than 90; Globulin 2.5 g/dL (2.4-3.5); Glucose 74 mg/dL (70-105); Potassium 3.9 mmol/L (3.5-5.1); Protein, Total 6.8 g/dL (6.0-8.3); Sodium 140 mmol/L (136-145)
== END 2019-03-17 18:30 | disposition home or self-care (01) ==
LOC: ERS 16:03
DX: I89.0 Lymphedema, not elsewhere classified (principal); F31.9 Bipolar disorder, unspecified; F41.9 Anxiety disorder, unspecified; F17.210 Nicotine dependence, cigarettes, uncomplicated; Z79.899 Other long term (current) drug therapy; Z85.3 Personal history of malignant neoplasm of breast
CPT/HCPCS: 80053; 85025; 85379

== ENCOUNTER 2019-07-04 14:40 | Emergency (ER) | payer OTHER ==
[2019-07-04] MEDS ORDERED: Ketorolac Tromethamine 30 MG/ML VIAL ONE (17:51)
[2019-07-04 18:13] LABS: #Basophils 0.1 thou/uL (0.0-0.2); #Eosinphils 0.2 thou/uL (0.0-0.7); #Monocytes 0.6 thou/uL (0.11-0.59); #Neutrophils 5.6 thou/uL (1.40-6.50); %Basophils 1.1 % (0.0-1.0); %Lymphocytes 23.9 % (21.0-51.0); Mean Corpuscular HGB CONC 34.3 g/dL (32.0-36.0); Mean Corpuscular Hemoglobin 31.1 pg (27.0-31.0); Mean Corpuscular Volume 90.7 fL (78.0-98.0); Mean Platelet Volume 7.3 fL (7.4-10.4); Platelet Count 266 thou/uL (130-400); RBC Distribution Width 11.9 % (11.5-14.5); Red Blood Cell (RBC) Count 4.19 mill/uL (4.20-5.40); White Blood Cell (WBC) Count 8.4 thou/uL (4.8-10.8)
[2019-07-04 18:31] LABS: BHCG - Serum Negative (NEGATIVE); Pregs Control Background? CLEAR/WHITE (CLR/WHITE); Pregs Control Bar Appear? YES (CONTROL BAR)
[2019-07-04 18:40] LABS: ALT (SGPT) 20 U/L (8-55); AST (SGOT) 34 U/L (5-34); Albumin 3.9 g/dL (3.5-5.0); Alkaline Phosphatase 92 U/L (40-110); Anion Gap 14 mmol/L (10-20); BUN (Urea Nitrogen) 9 mg/dL (7.0-18.7); Bilirubin, Total 0.2 mg/dL (0.2-1.2); Calc. Creatinine Clearance 0 mL/min (70-130); Calcium 8.8 mg/dL (7.8-10.44); Carbon Dioxide 19 mmol/L (22-29); Chloride 109 mmol/L (98-107); Estimated GFR-MDRD Greater than 90; Globulin 3.4 g/dL (2.4-3.5); Glucose 75 mg/dL (70-105); Potassium 4.3 mmol/L (3.5-5.1); Protein, Total 7.3 g/dL (6.0-8.3); Sodium 138 mmol/L (136-145)
[2019-07-04] MEDS ORDERED: Morphine 4 MG/ML VIAL ONE (19:26)
--- NOTE | 2019-07-04 19:43 | CT ---
NONCONTRAST CT ABDOMEN AND PELVIS: 07/04/19 HISTORY: Left lower extremity pain and left lumbar spinal pain which started three weeks ago. History of breas t cancer. COMPARISON: 03/12/11. FINDINGS: There is an irregular nodular density seen at the right lateral costophrenic angle measuring 10 mm. I t could be related to focal area of pneumonitis or possibly a pulmonary nodule. This was not present on prior study. The left lung base is clear. Lack of intravenous contrast limits sensitivity for evaluation of the parenchymal organs. However, th e liver, spleen, pancreas, bilateral adrenal glands, left kidney, urinary bladder, and uterus demonst rate a grossly normal nonenhanced CT appearance. There is a nonobstructing approximately 4 mm calculus in the inferior pole right kidney. No additiona l renal or ureteral calculi are seen bilaterally, and there is no evidence of hydronephrosis. The lar ge adnexal structures seen anterior aspect of the pelvis on the prior noncontrasted CT exam is not vi sualized. However, there is a 2.2 cm hypodense right adnexal structure seen in the pelvis slightly mo re posteriorly than on the prior exam which may represent an ovarian cyst. Trace amount of free fluid is seen in the pelvis likely physiologic. The appendix is not definitively seen. There is curvilinear of increased density seen in the right l ower quadrant which could be related to suture material and possibly secondary to prior appendectomy. Clinical correlation is suggested. IMPRESSION: 1. Nodular density lateral right lung base measuring 10 mm. This may represent focal area of pne umonitis, but pulmonary nodule cannot be excluded. A follow-up CT thorax is recommended. 2. Nonobstructing right renal calculus. 3. Probable right ovarian cyst. Code LN. 1. POS: [facility]
--- NOTE | 2019-07-04 20:05 | ULT ---
LEFT LOWER EXTREMITY VENOUS DOPPLER ULTRASOUND: 07/04/19 COMPARISON: None. HISTORY: Left lower extremity pain, assess for DVT. TECHNIQUE: Multiplanar vinson scale sonographic imaging of the venous structures of the left lower extremity obtai mary grace with color flow and spectral analysis. FINDINGS: Left common femoral vein, greater saphenous vein, profunda femoral vein, femoral vein, popliteal vein , and posterior tibial vein are patent. Normal blood flow, augmentation and compression within the de ep venous system of the left lower extremity. No evidence for left lower extremity DVT. IMPRESSION: No evidence of deep venous thrombosis of the left lower extremity. POS: [facility]
== END 2019-07-04 21:47 | disposition home or self-care (01) ==
LOC: ERS 14:40
DX: M54.42 Lumbago with sciatica, left side (principal); R91.8 Other nonspecific abnormal finding of lung field; F41.9 Anxiety disorder, unspecified; F31.9 Bipolar disorder, unspecified; F17.210 Nicotine dependence, cigarettes, uncomplicated; Z79.899 Other long term (current) drug therapy
CPT/HCPCS: 74176; 80053; 84703; 85025; 85379; 85652; 96374; 96375; J1885; J2270

== ENCOUNTER 2019-08-27 13:40 | Outpatient (CLI) | payer OTHER ==
--- NOTE | 2019-08-27 14:30 | RAD ---
CHEST 2 VIEWS: HISTORY: Wheezing. FINDINGS: Heart size is within normal limits. Right subclavian catheter injection port. Surgical clips in the left axilla. IMPRESSION: No significant active intrathoracic disease. No evidence for pneumonia. No evidence for metastasis. POS: [facility]
== END 2019-08-27 13:41 | disposition home or self-care (01) ==
LOC: RAD-FRANK 13:40
PROVIDERS: ATTEND Internal Medicine
DX: R06.2 Wheezing (principal)
CPT/HCPCS: 71046

== ENCOUNTER 2019-08-30 08:46 | Outpatient (CLI) | payer OTHER ==
--- NOTE | 2019-08-30 10:46 | CT ---
CT CHEST PERFORMED WITH IV CONTRAST ENHANCEMENT: Date: 08/30/2019 HISTORY: Patient has a history of breast cancer and right lower lobe lung nodule noted on a recent CT of abdom en. This is being done as a follow-up. COMPARISON: 07/04/2019 CT abdomen and pelvis. FINDINGS: There are three concerning nodules, two within the right upper lobe. One is in the right lung apex wh ich has some linear changes extending to the pleura and measures 10.0 mm in size. A second again ill- defined slightly spiculated appearing lesion also in the right upper lobe measures 7.0 mm. The third lesion which is in the right lower lobe measures 10.4 mm in size as compared to 9.6 mm on the prior e xamination. This is not definitely a significant change. No significant mediastinal or hilar adenopathy. The visualized liver parenchyma is unremarkable. Review of osseous structures show no lytic or blastic bony change. IMPRESSION: 1. Three concerning right lung pulmonary nodules, two within the right upper lobe measuring 10.0 and 6-7 mm, respectively, and a 10.0 mm right lower lobe pulmonary nodule, not definitely changed since the prior examination. Margins are irregular and somewhat hazy and indistinct, and even probably slig htly spiculated. PET scan would probably be helpful in further assessment. 2. Postop changes of the left axilla incidentally seen. POS: [facility]
[2019-08-30] MEDS ORDERED: Iopamidol-370 76% 500 ML 1 ML ONE (11:04)
== END 2019-08-30 08:47 | disposition home or self-care (01) ==
LOC: BICCT 08:46
PROVIDERS: ATTEND Internal Medicine Hematology & Oncology
DX: C50.412 Malignant neoplasm of upper-outer quadrant of left female breast (principal); J98.4 Other disorders of lung; R91.8 Other nonspecific abnormal finding of lung field
CPT/HCPCS: 71260; Q9967

== ENCOUNTER 2019-09-10 08:10 | Outpatient (CLI) | payer OTHER ==
--- NOTE | 2019-09-10 10:04 | PET ---
EXAM: PET/CT HISTORY: Left-sided breast cancer with pulmonary nodules, concerning for pulmonary metastatic disease; no hist ory of diabetes or anemia. History of prior chemotherapy with the last treatment being greater than 1 year ago. History of left breast and left axillary radiation therapy in 2018. History of left breas t and left axillary surgical procedure in February 2018. TECHNIQUE: PET scanning with CT attenuation correction was performed from the base of the brain to the proximal thighs following the intravenous administration of 14.0 millicuries [id number]. COMPARISON: CT of the thorax dated 09/[address] of the abdomen and pelvis dated July 04 19 FINDINGS: Biodistribution:The biodistribution for the exam appears acceptable. Head and neck: There is appropriate background activity within the brain. No hypermetabolic lymphaden opathy or masses identified. Thorax: There is a 6.5 mm pulmonary nodule within the apical segment of the right upper lobe which de monstrates no associated hypermetabolic activity. The lesion is spiculated in its morphological appearance. There is a 9.1 mm spiculated pulmonary nodule within the apical segment of the right uppe r lobe on image 54 series 3 with no associated hypermetabolic uptake (peak activity is 1.35 with this lesion). There is a 1.2 cm spiculated pulmonary nodule within the posterior lateral segment of t he right lower lobe with a peak activity at 2.17 a mean activity 1.79. There is a right peribronchial lymph node, seen adjacent to the right mainstem bronchus, that is not pathologically en larged measuring 7 mm, but does demonstrate mild hypermetabolic uptake up to 2.51. There is a right paratracheal lymph node that is nonpathologically enlarged measuring approximately 5 mm and demonstra brandi mild metabolic uptake of 1.79. There is skin thickening with mild metabolic uptake involving the anterior left breast consistent with patient's prior history of radiation therapy. There are nume celso surgical clips within the left axilla consistent with axillary lymph node dissection. No pathologically enlarged or hypermetabolic lymph nodes are seen within the axillary regions or the sup raclavicular regions. Abdomen and pelvis: There is expected background activity within the GI and systems.No hypermetabo lic lymphadenopathy or mass is identified within the abdomen or pelvis. No hypermetabolic ascites is present. Mild free fluid is present within the cul-de-sac of Sumit. Osseous structures and skin: There is a hypermetabolic lesion seen within the left ischial tuberosity with a peak activity at 10.11 and a mean activity of 9.95 there are only subtle densities seen within this region on the CT evaluation. The lesion approximately measures 11 mm in size. There are 3 other smaller additional foci surrounding the left acetabulum without definite CT identifiable lesions. The peak activity of the lesion seen along the medial wall of the left acetabulum has a peak activity at 8.0 and a mean activity of 6.56 no additional hypermetabolic osseous lesion is identified. No hypermetabolic skin lesion is identified. IMPRESSION: Abnormal PET/CT 1. Hypermetabolic lesions of the left acetabulum and left ischial tuberosity consistent with early os seous metastatic disease. 2. The spiculated pulmonary nodules within the right upper lobe and right lower lobe demonstrate no f rank hypermetabolic uptake; however, morphologically, these pulmonary nodules remain suspicious for metastatic nodules. Continued CT follow-up is recommended. 3. Nonpathologically enlarged mildly hypermetabolic right peribronchial lymph node is nonspecific. Ea rly malignant lymphadenopathy is not excluded. Continued PET CT follow-up recommended is recommended. 4. Nonpathologically enlarged, right paratracheal lymph node with mild increased metabolic uptake is likely similar process to the above-described right peribronchial lymph node.
== END 2019-09-10 08:11 | disposition home or self-care (01) ==
LOC: PET 08:10
PROVIDERS: ATTEND Internal Medicine Hematology & Oncology
DX: C50.912 Malignant neoplasm of unspecified site of left female breast (principal); R92.8 Other abnormal and inconclusive findings on diagnostic imaging of breast
CPT/HCPCS: 78815; A9552

== ENCOUNTER 2019-09-26 14:26 | Outpatient (CLI) | payer MEDICAID, OTHER ==
[~2019-09-26 14:26] MED LIST: Iopamidol-370 76% 500 ML 1 ML ONE
--- NOTE | 2019-09-26 15:02 | CT ---
Exam: Pre and postcontrast head CT HISTORY: Breast cancer with osseous and lung metastases. Occasional headache and dizziness. Memory lo ss FINDINGS: Noncontrast head CT: No intracranial hemorrhage or extra-axial hematoma No midline shift Basilar cisterns are patent Brain volume is age-appropriate Cortical vinson-white matter differentiation preserved No hydrocephalus Adequate aeration of the sinuses and mastoid air cells. Intact calvarium Postcontrast head CT: No pathologic enhancement of the brain parenchyma. IMPRESSION: Unremarkable pre and postcontrast brain CT. If there is still concern for intracranial metastases, co nsider MRI as it is a more sensitive modality to assess for parenchymal metastases.
== END 2019-09-26 14:27 | disposition home or self-care (01) ==
LOC: BICCT 14:26
PROVIDERS: ATTEND Internal Medicine Hematology & Oncology
DX: C50.412 Malignant neoplasm of upper-outer quadrant of left female breast (principal); C79.51 Secondary malignant neoplasm of bone; C78.00 Secondary malignant neoplasm of unspecified lung
CPT/HCPCS: 36415; 70470; 80053; 84443; 86300; Q9967

== ENCOUNTER 2019-10-17 13:36 | Outpatient (CLI) | payer OTHER ==
--- NOTE | 2019-10-17 14:15 | RAD ---
Exam: Fluoroscopic Mediport catheter check. HISTORY: Discomfort when trying to inject chemotherapy agent via MediPort catheter. Evaluate for cath eter integrity. FINDINGS: Fluoroscopy was performed. Patient's MediPort catheter was injected with contrast. There is extravasation of contrast beyond the confines of the catheter, along its proximal aspect. Specifically, catheter extravasates in the adjacent soft tissues in the mid right clavicle region. IMPRESSION: Disruption of the right-sided Mediport catheter. Results of the findings were conveyed to Dr. Dominguez via [facility] on 10/17/2019 at 2:14 PM Code CR Transcribed Date/Time: 10/17/2019 3:01 PM
== END 2019-10-17 13:37 | disposition home or self-care (01) ==
LOC: RAD 13:36
PROVIDERS: ATTEND Internal Medicine Hematology & Oncology
DX: R23.2 Flushing (principal); C50.412 Malignant neoplasm of upper-outer quadrant of left female breast
CPT/HCPCS: 36598; 80053; 82248; 83615; 84100; 84550; J1642

== ENCOUNTER 2019-10-25 05:48 | Day surgery (SDC) | payer OTHER ==
[2019-10-24 10:30] VITALS: BMI 24.7
[2019-10-25] MEDS ORDERED: Levofloxacin 500 mg/D5W 100 ml Premix Bag ONE (06:12)
[2019-10-25] MEDS ORDERED: Midazolam HCl 2 mg/2 ml Vial ONE ×2 (07:48→07:54)
[2019-10-25] MEDS ORDERED: Bupivacaine 0.25% HCL 30 ML VIAL ONE (07:54)
[2019-10-25] MEDS ORDERED: Lidocaine 1% w/Epinephrine 1:100K 20 ML VIAL ONE (07:54)
[2019-10-25] MEDS ORDERED: Lidocaine 2% w/Epinephrine 1:200K 20 ML VIAL ONE (07:54)
[2019-10-25] MEDS ORDERED: Fentanyl 100 MCG/2 ML VIAL ONE (07:54)
[2019-10-25] MEDS ORDERED: Famotidine/PF 20 mg/2ml Vial ONE (07:55)
[2019-10-25] MEDS ORDERED: PROPOFOL 40 ML ONE (07:55)
[2019-10-25] MEDS ORDERED: Propofol 500 MG/50 ML VIAL ONE (07:55)
--- NOTE | 2019-10-25 10:01 | RAD ---
Exam: Chest one view HISTORY:Status post Mediport catheter placement Comparison: None FINDINGS: Mediport: Right-sided Mediport catheter terminates in the expected region of the superior vena cava Cardiac silhouette: Normal Aorta: Unremarkable Pulmonary vessels: Normal Costophrenic angles: Clear LUNGS: No masses or consolidation. Pneumothorax: None Osseous abnormalities: None IMPRESSION: 1. No pneumothorax. 2. Right-sided Mediport catheter terminating in the expected region of the superior vena cava
--- NOTE | 2019-10-25 11:59 | PDOC.OP ---
Operative Note - Operative Note Operative Note: PROCEDURE: Right subclavian MediPort replacement with fluoroscopic guidance DATE OF PROCEDURE: 10/25/2019 SURGEON: Brad Berumen M.D. PREOPERATIVE DIAGNOSIS: Malfunctioning Mediport POSTOPERATIVE DIAGNOSIS: Malfunctioning Mediport HISTORY: Patient has been diagnosed with metastatic breast cancer. Chemotherapy is ongoing via a right subclavian Mediport but recently she experienced pain with injection and was found on port study to have leakage from the tubing near the subclavian vein insertion site. Recommendation was made to proceed with replacement of the Mediport. OPERATIVE PROCEDURE IN DETAIL: After informed consent was obtained and appropriate preoperative antibiotics administered, the patient was taken to the operating room and placed in supine position and monitored anesthesia care was administered. The patient was then placed in Trendelenburg position and the right chest incision was reopened. Dissection was carried down to the Mediport tubing which was from the port. A wire was placed through the Mediport tubing and the tubing was withdrawn leaving the port in place. This was confirmed to be in the superior vena cava by fluoroscopy. The sheath and dilator were placed over the wire and the dilator and wire removed leaving the sheath in place. New Mediport tubing was placed through the sheath and the sheath was split and removed leaving the tubing in place. The end of the tubing was pulled back under fluoroscopic guidance and adjusted to the its proper position in superior vena cava. The tubing was then attempted to be secured to the original Mediport site but it would not secure properly and then would not release from the Mediport either. There was concerned that the tubing could have been damaged by attempts to get it to release from the Mediport so a new Mediport set was obtained and the old tubing cut and a wire placed through the tubing and the tubing withdrawn leaving the wire in place and the subclavian vein. The old Mediport was dissected free of the subcutaneous pocket and a new Mediport was obtained and secured in the subcutaneous pocket with Prolene sutures. The dilator and sheath were then placed over the wire and the dilator and wire removed leaving the sheath in place. The clamped MediPort tubing was tunneled through the sheath, which was then split and removed leaving the MediPort tubing in place. The tubing was adjusted until the tip was confirmed by fluoroscopy to be in the superior vena cava just above the atrium. The tubing was clamped at the skin level and cut and the tubing secured to the port. The port was aspirated with the Gray needle and had excellent flow of dark venous non-pulsatile blood and easily flushed without resistance and without leakage. The subcutaneous tissues were closed with a running Monocryl suture, following which the skin was closed with a running subcuticular Monocryl suture and Dermabond dressings were placed. The course of the catheter was confirmed by fluoroscopy to be smooth with the tip appropriately located in the superior vena cava. The patient was taken back to the day stay unit in good condition. Estimated blood loss was minimal. There were no complications. There were no specimens.
[2019-10-25] MEDS ORDERED: Ondansetron PF 4 MG/2 ML Vial ONE (13:59)
[2019-10-25] MEDS ORDERED: Lidocaine 1% PF 5 ML VIAL ONE (13:59)
== END 2019-10-25 10:30 | disposition home or self-care (01) ==
LOC: SDC 05:48
PROVIDERS: ATTEND Surgery
PROC: 02HV33Z Insertion of Infusion Device into Superior Vena Cava, Percutaneous Approach (ICD-10-PCS; principal; 2019-10-25)
DX: T82.534A Leakage of infusion catheter, initial encounter (principal); C50.919 Malignant neoplasm of unspecified site of unspecified female breast; C79.9 Secondary malignant neoplasm of unspecified site; Z79.899 Other long term (current) drug therapy; Z88.0 Allergy status to penicillin; Z91.040 Latex allergy status
CPT/HCPCS: 71045; C1788; J1642; J1956; J2250; J2704; J3010; S0020; S0028

== ENCOUNTER 2019-12-24 09:43 | Outpatient (CLI) | payer OTHER ==
[~2019-12-24 09:43] MED LIST changes: +Iopamidol 370 76% 100 ML VIAL ONE; -Iopamidol-370 76% 500 ML 1 ML ONE
--- NOTE | 2019-12-24 10:55 | CT ---
CHEST CT WITH CONTRAST ABDOMEN CT WITH CONTRAST PELVIC CT WITH CONTRAST: HISTORY: Left breast cancer. Correlation: PET imaging 09/10/2019. COMPARISON: Chest CT 08/30/2019, abdomen and pelvic CT 07/04/2019. FINDINGS: Chest CT: Mediastinum: No mass, lymphadenopathy or hematoma. Aorta: Normal caliber thoracic and abdominal aorta. Heart: Normal heart size. No pericardial effusion. Trachea and central bronchi: Patent. Pleural spaces: No pleural effusion. Right lung: Previously noted spiculated nodule in the right lung apex has essentially resolved. Resid ual linear density does remain suggesting scar. Spiculated solid nodule in the right upper lobe currently measures 0.5 x 0.2 cm, previously measuring 0.7 x 0.6 cm. Linear density with minimal nodul arity noted in the lateral aspect of the right lower lobe. Nodular component measures approximately 0.1 cm, previously measuring 1.0 cm. No new or suspicious nodules in the right lung. There is stable scar/atelectasis in the middle lobe. Left lung:Stable scar and atelectasis in the lingula and left lower lobe. There are no suspicious nod ules in the left lung. Pneumothorax: None. Abdomen CT: Gallbladder: Unremarkable. Portal vein: Patent. Liver: Appropriate enhancement.. Spleen: Appropriate enhancement. Pancreas: Appropriate enhancement. Adrenal glands: Appropriate enhancement. Lymphadenopathy: No gastrohepatic, retrocrural or periportal lymphadenopathy. Kidneys: Symmetric enhancement. No obstructive uropathy. Mesentery: No mass, lymphadenopathy, free air or free fluid. Alimentary canal: Normal gastric mucosa. Normal caliber small bowel loops. Ileocecal junction is norm al. There appears to be previous appendectomy change. Contrast and fecal material in a nondistended, nondilated colon. There is an anastomosis in the midportion of the sigmoid colon. Pelvis CT: Uterus and adnexal structures have a normal appearance. No pelvic mass, lymphadenopathy, free air or free fluid. Normal-appearing urinary bladder. Osseous structures: Subtle sclerosis involving the left ischium and subtle sclerosis involving the left acetabulum. No ev idence of a pathologic fracture. IMPRESSION: 1. Interval resolution of right lung parenchymal nodules. Residual linear densities likely represent posttreatment scar. 2. Subtle sclerosis involving the left ischium and acetabulum. No evidence of pathologic fractures. Transcribed Date/Time: 12/24/2019 11:04 AM
--- NOTE | 2019-12-24 14:14 | NM ---
WHOLE BODY BONE SCAN: HISTORY: Left breast cancer RADIOPHARMACEUTICAL: 30 mCi technetium 99m-MDP injected intravenously COMPARISON: None CORRELATION: CT chest, abdomen and pelvis from same date FINDINGS: Increased uptake in the left acetabulum is consistent with metastasis. There scattered degenerative activity in the appendicular skeleton. No other abnormal areas of tracer localization are seen in the skeleton. Tracer excretion through the kidneys is within normal limits. IMPRESSION: Osseous metastatic disease involving the left acetabulum.
== END 2019-12-24 09:44 | disposition home or self-care (01) ==
LOC: CT 09:43
PROVIDERS: ATTEND Internal Medicine Hematology & Oncology
DX: C50.412 Malignant neoplasm of upper-outer quadrant of left female breast (principal); C79.51 Secondary malignant neoplasm of bone; R91.8 Other nonspecific abnormal finding of lung field
CPT/HCPCS: 71260; 74177; 78306; A9503; Q9967

== ENCOUNTER 2020-01-02 12:17 | Outpatient (CLI) | payer OTHER ==
[2020-01-02] MEDS ORDERED: Magnevist 469MG/ML 20 ML VIAL ONE ×2 (14:37→14:38)
--- NOTE | 2020-01-02 17:33 | MRI ---
MRI OF THE LEFT THIGH WITH AND WITHOUT IV CONTRAST: 01/02/20 PROVIDED CLINICAL HISTORY: Leg pain, history of breast cancer. FINDINGS: There is patchy noncircumscribed signal alteration on fluid sensitive sequences involving both the an terior and posterior as well as medial proximal thigh musculature. There is no focal concerning marro w signal abnormality involving the left femur. There is no evidence for rim enhancing fluid collectio n to suggest an abscess. The courses of the regional major neurovascular structures appear unremarkab le. There is noncircumscribed fluid signal intensity within the subcutaneous adipose layer and within the intramuscular and muscular fascia of the proximal thigh. IMPRESSION: Soft tissue findings involving the proximal thigh, presumably on the basis radiation change. Infectio us and inflammatory changes are also possible. Correlate clinically. POS: JAIDEN
--- NOTE | 2020-01-02 18:45 | MRI ---
MRI LEFT HIP WITH AND WITHOUT IV CONTRAST: 01/02/20 PROVIDED CLINICAL HISTORY: Left hip pain status post treatment including radiation for metastatic disease. FINDINGS: There is extensive well marginated diminished T1 signal intensity and increased signal intensity on f luid sensitive sequences involving the left acetabulum, ischium, and lateral superior pubic ramus on the left. There is associated contrast enhancement involving the majority of this signal alteration, with the exception of an approximately 2.8 cm region of nonenhancement involving the superior aspects of the left acetabulum. There is a moderate left hip joint effusion with associated synovial enhancement. There is extensive patchy signal alteration involving the hip musculature immediately about the hip, most notably involv ing the gluteal musculature. There is noncircumscribed fluid signal intensity within the subcutaneous adipose layer about the left hip. There is a small amount of presacral fluid. Regional marrow signal appears otherwise normal. There is no evidence for a focal rim enhancing fluid collection. 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 Focal area of nonenhancement involv ing the left acetabulum may reflect osteonecrosis. The possibility of the diffuse abnormality reflect ing residual or recurrent disease is not excluded. 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 The lack of pretreatment imaging limits evaluation and recurrent or residual tumor cannot be excluded on the basis of this examination. Follow-up PET examination may be useful in determining for recurrent/residual tumor. POS: JAIDEN
== END 2020-01-02 12:18 | disposition home or self-care (01) ==
LOC: MRI 12:17
PROVIDERS: ATTEND Internal Medicine Hematology & Oncology
DX: C50.412 Malignant neoplasm of upper-outer quadrant of left female breast (principal); C79.51 Secondary malignant neoplasm of bone; R93.7 Abnormal findings on diagnostic imaging of other parts of musculoskeletal system
CPT/HCPCS: A9579; J1642

== ENCOUNTER 2020-03-17 09:58 | Outpatient (CLI) | payer OTHER ==
--- NOTE | 2020-03-17 12:29 | CT ---
CT CHEST AND ABDOMEN AND PELVIS WITH IV CONTRAST: Date: 03/17/2020 HISTORY: Left breast cancer. COMPARISON: 12/24/2019. FINDINGS: No mediastinal, hilar, axillary, or internal mammary, abdominal or pelvic lymphadenopathy is seen. No pleural or pericardial effusions are seen. The 4-5 mm nodule in the right lung apex is stable. The p unctate nodular density with adjacent linear density in the lateral aspect of the right lower lobe is stable. No new or suspicious nodules are seen in the lungs on either side. The liver, spleen, pancreas, adrenal glands, and kidneys are normal. No calcified gallstones are seen . There is a 3.0 mm calculus in the right UPJ without significant hydroureteronephrosis. The small bowel loops are not abnormally dilated. The thoracoabdominal aorta demonstrates no evidence of aneurysm. Subtle sclerotic changes in the left hemipelvis are again noted (predominantly acetabulum) are stable . No new osseous lesions are identified. IMPRESSION: Nonobstructing 3.0 mm right UPJ calculus, otherwise stable exam. POS: OFF
[2020-03-17] MEDS ORDERED: Iopamidol 370 76% 100 ML VIAL ONE (12:56)
--- NOTE | 2020-03-17 14:20 | NM ---
WHOLE BODY BONE SCAN: HISTORY: Malignant neoplasm of the upper outer quadrant of the left breast RADIOPHARMACEUTICAL: 30.1 mCi technetium 99m-MDP injected intravenously COMPARISON:Prior bone scan dated December 24, 2019. Exam was also reviewed against a prior PET/CT dated 2019 CORRELATION: None FINDINGS: Again seen is diffuse increased uptake involving the left acetabulum and left ischial tuberosity cons istent with foci of osseous metastatic disease. Patchy nonspecific periarticular uptake is seen involving the shoulders, elbows, wrists, knees, ankle and feet. There are areas of diffuse soft tissu e uptake involving the left hip region which may reflect sequela of radiation therapy to the left hip and proximal left thigh IMPRESSION: 1. Persistent area of activity involving the left acetabulum and left ischial tuberosity consistent w ith osseous metastatic disease. 2. Soft tissue uptake of the left thigh is likely related to radiation-induced soft tissue injury . Transcribed Date/Time: 03/17/2020 3:24 PM
== END 2020-03-17 09:59 | disposition home or self-care (01) ==
LOC: CT 09:58
PROVIDERS: ATTEND Internal Medicine Hematology & Oncology
DX: C79.51 Secondary malignant neoplasm of bone (principal); C50.412 Malignant neoplasm of upper-outer quadrant of left female breast; R91.8 Other nonspecific abnormal finding of lung field; N20.1 Calculus of ureter
CPT/HCPCS: 71260; 74177; 78306; Q9967

== ENCOUNTER 2020-04-15 01:00 | Emergency (ER) | payer OTHER ==
[2020-04-15 02:05] LABS: #Basophils 0.1 thou/uL (0.0-0.2); #Eosinphils 0.1 thou/uL (0.0-0.7); #Lymphocytes 1.6 thou/uL (1.20-3.40); #Monocytes 0.6 thou/uL (0.11-0.59); #Neutrophils 3.1 thou/uL (1.40-6.50); %Eosinophils 2.3 % (0.0-10.0); %Lymphocytes 28.9 % (21.0-51.0); %Neutrophils 55.8 % (42.0-75.0); Hemoglobin 12.6 g/dL (12.0-16.0); Mean Corpuscular HGB CONC 32.9 g/dL (32.0-36.0); Mean Corpuscular Hemoglobin 31.8 pg (27.0-31.0); Mean Corpuscular Volume 96.5 fL (78.0-98.0); Mean Platelet Volume 7.2 fL (7.4-10.4); Platelet Count 332 thou/uL (130-400); RBC Distribution Width 15.8 % (11.5-14.5); Red Blood Cell (RBC) Count 3.96 mill/uL (4.20-5.40); White Blood Cell (WBC) Count 5.6 thou/uL (4.8-10.8)
[2020-04-15 02:15] LABS: BHCG - Serum Negative (NEGATIVE); Pregs Control Background? CLEAR/WHITE (CLR/WHITE); Pregs Control Bar Appear? YES (CONTROL BAR)
[2020-04-15 02:25] LABS: ALT (SGPT) 33 U/L (8-55); AST (SGOT) 31 U/L (5-34); Albumin 3.5 g/dL (3.5-5.0); Alkaline Phosphatase 111 U/L (40-110); Anion Gap 14 mmol/L (10-20); BUN (Urea Nitrogen) 6 mg/dL (7.0-18.7); Bilirubin, Total Less than 0.2 mg/dL (0.2-1.2); Calc. Creatinine Clearance 0 mL/min (70-130); Calcium 8.4 mg/dL (7.8-10.44); Carbon Dioxide 18 mmol/L (22-29); Chloride 108 mmol/L (98-107); Estimated GFR-MDRD Greater than 90; Globulin 2.9 g/dL (2.4-3.5); Glucose 93 mg/dL (70-105); Potassium 3.5 mmol/L (3.5-5.1); Protein, Total 6.4 g/dL (6.0-8.3); Sodium 136 mmol/L (136-145)
--- NOTE | 2020-04-15 08:00 | RAD ---
PORTABLE CHEST: HISTORY: Chest pain. FINDINGS: Lung victoria are clear. No infiltrate or effusion. Heart and mediastinum appear normal. There is a MediPort catheter in place via the right subclavian. This line overlies the SVC. Surgical clips in the left axilla. IMPRESSION: No acute process. POS: AGW
--- NOTE | 2020-04-15 08:19 | CT ---
PRELIMINARY REPORT/[facility]/EMERGENCY AFTER HOURS PROCEDURE: EXAM: CT Head Without Intravenous Contrast. CLINICAL HISTORY: Patient presents EMS with several complaints. She reports that she was laying in bed when she suddenl y felt like her heart was racing, she had chest pain and shortness of breath, she had some hallucinat ions that she cannot describe, and she generally had a sense of impending doom. She reports no previo us history of the same. She does have a history of seizures of several different type, and she thinks that it is possible that she had a seizure tonight. Patient is currently receiving chemotherapy for metastatic breast cancer TECHNIQUE: Axial computed tomography images of the head/brain without intravenous contrast. COMPARISON: CT\SR - CT BRAIN W WO CON - 09/26/2019 02:38 PM CDT FINDINGS: BRAIN: No acute intraparenchymal hemorrhage. No mass lesion. No CT evidence for acute territorial infarct. N o midline shift or extra-axial collection. VENTRICLES: No hydrocephalus. ORBITS: The orbits are unremarkable. SINUSES AND MASTOIDS: The paranasal sinuses and mastoid air cells are clear. SOFT TISSUES: No significant facial or scalp soft tissue swelling evident. No radiopaque foreign body is seen. BONES: No acute skull fracture. IMPRESSION: No acute intracranial abnormality. ELECTRONICALLY SIGNED BY: Jonathan Dill MD Apr 15, 2020 2:05:48 AM CDT This report is intended for review by the ordering physician only, in accordance of law. If you recei ve this report in error, please call [facility] at [phone]. FINAL REPORT CT HEAD WITHOUT CONTRAST: No acute intracranial process. I am in agreement with the preliminary report. POS: VASILIY
--- NOTE | 2020-04-25 14:20 | EKG ---
Test Reason : Blood Pressure : / mmHG Vent. Rate : 074 BPM Atrial Rate : 074 BPM P-R Int : 158 ms QRS Dur : 088 ms QT Int : 404 ms P-R-T Axes : 048 040 032 degrees QTc Int : 448 ms Normal sinus rhythm Low voltage QRS Cannot rule out Anterior infarct , age undetermined Abnormal ECG Confirmed by KARENA DAO ([id number]), editor newspaper MALATHI ACOSTA ([id number]) on 04/25/2020 2:20:00 PM Referred By: Confirmed By:KARENA DAO
== END 2020-04-15 03:33 | disposition home or self-care (01) ==
LOC: ERS 01:00
DX: R07.9 Chest pain, unspecified (principal); R00.2 Palpitations; G40.909 Epilepsy, unspecified, not intractable, without status epilepticus; F31.9 Bipolar disorder, unspecified; F41.9 Anxiety disorder, unspecified; C50.919 Malignant neoplasm of unspecified site of unspecified female breast; C79.51 Secondary malignant neoplasm of bone; F17.210 Nicotine dependence, cigarettes, uncomplicated; Z79.899 Other long term (current) drug therapy
CPT/HCPCS: 36415; 70450; 71045; 80053; 80177; 80201; 83880; 84484; 84703; 85025; 85379; 93005

== ENCOUNTER 2020-06-09 09:54 | Outpatient (CLI) | payer OTHER ==
[2020-06-09] MEDS ORDERED: Iopamidol 370 76% 100 ML VIAL ONE (10:20)
--- NOTE | 2020-06-09 12:17 | CT ---
CT OF THE CHEST AND ABDOMEN AND PELVIS WITH IV CONTRAST: INDICATION: History of breast cancer. COMPARISON: Prior CT of the chest, abdomen, and pelvis dated 03/17/2020, 12/24/2019, and a PET CT dated 09/10/2019. FINDINGS: The small 4 mm pulmonary nodule within the right lung apex is stable. A small 1 mm pulmonary nodule within the posterolateral right lower lobe on image 44 of series 3 is slightly smaller than on the pr ior examination which measured between 1-2 mm. No new pulmonary nodule is evident. No pathologically enlarged mediastinal, hilar, or axillary lymphadenopathy is evident. The liver, pancreas, adrenal glands, spleen, and kidneys reveal no definite acute abnormality. No hy dronephrosis is evident. No free fluid or enlarged lymph nodes are evident. Small and large bowel reveal no definite acute abnormality. Visualized reproductive structures appea r within normal limits by CT. The visualized bladder appears within normal limits. There is diffuse edematous change involving the musculature of the left thigh which may reflect seque lae of radiation therapy. Subtle increased sclerosis of the left acetabulum found on prior PET CT an d bone scan to be suspicious for metastatic disease remains similar. This is most prominent within t he left superior acetabular region as well as within the left pubic root and proximal left ischial tu berosity. No new focal osseous lesion is evident. IMPRESSION: 1. Stable CT examination of the chest. There are stable small pulmonary nodules within the right jaden ng apex and right lower lobe. No new pulmonary nodules are identified. 2. Stable reticulation and edematous change involving the left thigh skin and musculature which may reflect sequelae of radiation therapy. 3. Subtle increased sclerosis of the left acetabulum and left ischial tuberosity suspicious for osse ous metastatic disease remains relatively stable. No new osseous lesion is evident. 4. Previously seen right ureteropelvic junction stone has intervally passed. POS: BH
--- NOTE | 2020-06-09 14:07 | NM ---
WHOLE BODY BONE SCAN: 06/09/20 HISTORY: 30-year-old female with malignant neoplasm of upper outer quadrant of the left female breast. RADIOPHARMACEUTICAL: 32 millicuries technetium 99m-MDP injected intravenously. COMPARISON: Bone scan dated 03/17/20. CORRELATION: CT scan of the chest, abdomen and pelvis from today. FINDINGS: Interval improvement with mild residual uptake is seen in the left acetabulum and left ischial tubero sity. Increased uptake in the shoulders as well as wrist, knees, ankles and feet, consistent with deg enerative changes again noted. Increased soft tissue uptake in the region of the left hip. Mild soft tissue uptake in the region of the left hip is likely due to radiation therapy to the left hip and proximal left thigh. No new areas of abnormally increased tracer localization is seen in the skeleton. Tracer excretion th rough the kidneys is within normal limits. IMPRESSION: Interval improvement since 03/17/20. POS: OFF
== END 2020-06-09 09:55 | disposition home or self-care (01) ==
LOC: CT 09:54
PROVIDERS: ATTEND Internal Medicine Hematology & Oncology
DX: C50.412 Malignant neoplasm of upper-outer quadrant of left female breast (principal); C79.01 Secondary malignant neoplasm of right kidney and renal pelvis; C78.00 Secondary malignant neoplasm of unspecified lung; R91.8 Other nonspecific abnormal finding of lung field
CPT/HCPCS: 71260; 74177; 78306; A9503; Q9967

== ENCOUNTER 2020-10-07 09:03 | Outpatient (CLI) | payer OTHER ==
[2020-10-07] MEDS ORDERED: Iopamidol 370 76% 100 ML VIAL ONE (14:47)
== END 2020-10-07 09:04 | disposition home or self-care (01) ==
LOC: CT 09:03
PROVIDERS: ATTEND Internal Medicine Hematology & Oncology
DX: C50.412 Malignant neoplasm of upper-outer quadrant of left female breast (principal); C79.01 Secondary malignant neoplasm of right kidney and renal pelvis; C78.00 Secondary malignant neoplasm of unspecified lung; R91.8 Other nonspecific abnormal finding of lung field; R19.5 Other fecal abnormalities
CPT/HCPCS: 70470; 71260; 74177; 78306; A9503; Q9967

== ENCOUNTER 2021-01-15 09:35 | Outpatient (CLI) | payer OTHER ==
[2021-01-15] MEDS ORDERED: Iopamidol 370 76% 100 ML VIAL ONE (09:51)
== END 2021-01-15 09:36 | disposition home or self-care (01) ==
LOC: CT 09:35
PROVIDERS: ATTEND Internal Medicine Hematology & Oncology
DX: C79.51 Secondary malignant neoplasm of bone (principal); C78.00 Secondary malignant neoplasm of unspecified lung; C50.919 Malignant neoplasm of unspecified site of unspecified female breast; J98.4 Other disorders of lung; R91.1 Solitary pulmonary nodule; K31.89 Other diseases of stomach and duodenum; M62.89 Other specified disorders of muscle; M25.852 Other specified joint disorders, left hip
CPT/HCPCS: 71260; 74177; 78306; A9503; Q9967

== ENCOUNTER 2021-05-12 09:36 | Outpatient (CLI) | payer OTHER | END 2021-05-12 09:37 | disposition home or self-care (01) | LOC: CT 09:36 | PROVIDERS: ATTEND Internal Medicine Hematology & Oncology | DX: C79.51 Secondary malignant neoplasm of bone (principal); C78.00 Secondary malignant neoplasm of unspecified lung; C50.412 Malignant neoplasm of upper-outer quadrant of left female breast; S32.402A Unspecified fracture of left acetabulum, initial encounter for closed fracture; M62.552 Muscle wasting and atrophy, not elsewhere classified, left thigh; M62.89 Other specified disorders of muscle | CPT/HCPCS: 71260; 74177; 78306; A9503; Q9967 ==

== ENCOUNTER 2021-08-29 12:04 | Observation (INO) | payer OTHER ==
[2021-08-29] MEDS ORDERED: HYDROmorphone 0.5 MG/0.5 ML SYRINGE ONE (12:55)
[2021-08-29] MEDS ORDERED: Ondansetron PF 4 MG/2 ML Vial ONE (12:55)
[2021-08-29] MEDS ORDERED: Ketorolac Tromethamine 30 MG/ML VIAL ONE (13:50)
[2021-08-29 14:13] LABS: #Basophils 0.1 thou/uL (0.0-0.2); #Eosinphils 0.3 thou/uL (0.0-0.7); #Lymphocytes 2.6 thou/uL (1.20-3.40); #Monocytes 0.7 thou/uL (0.11-0.59); %Basophils 1.4 % (0.0-1.0); %Lymphocytes 26.8 % (21.0-51.0); %Monocytes 6.7 % (0.0-10.0); %Neutrophils 62.1 % (42.0-75.0); Hemoglobin 13.5 g/dL (12.0-16.0); Mean Corpuscular HGB CONC 32.4 g/dL (32.0-36.0); Mean Corpuscular Volume 95.8 fL (78.0-98.0); Mean Platelet Volume 6.9 fL (7.4-10.4); Platelet Count 286 thou/uL (130-400); RBC Distribution Width 11.9 % (11.5-14.5); Red Blood Cell (RBC) Count 4.34 mill/uL (4.20-5.40); White Blood Cell (WBC) Count 9.7 thou/uL (4.8-10.8)
[2021-08-29] MEDS ORDERED: Morphine IR Tab 15 MG TAB PO PRN (14:32)
[2021-08-29 14:34] LABS: ALT (SGPT) 38 U/L (8-55); AST (SGOT) 36 U/L (5-34); Albumin 4.2 g/dL (3.5-5.0); Alkaline Phosphatase 134 U/L (40-110); Anion Gap 11 mmol/L (10-20); BUN (Urea Nitrogen) 9 mg/dL (7.0-18.7); Bilirubin, Total 0.2 mg/dL (0.2-1.2); Calc. Creatinine Clearance 0 mL/min (70-130); Calcium 9.4 mg/dL (7.8-10.44); Carbon Dioxide 27 mmol/L (22-29); Chloride 102 mmol/L (98-107); Globulin 3.2 g/dL (2.4-3.5); Glucose 85 mg/dL (70-105); Potassium 4.3 mmol/L (3.5-5.1); Protein, Total 7.4 g/dL (6.0-8.3); Sodium 136 mmol/L (136-145)
[2021-08-29] MEDS ORDERED: Fentanyl 100 MCG/2 ML VIAL SLOW IVP PRN (14:34)
[2021-08-29] MEDS ORDERED: Polyethylene Glycol 3350 17 GM Packet PO PRN (14:35)
[2021-08-29] MEDS ORDERED: Ondansetron PF 4 MG/2 ML Vial IVP PRN (14:37)
[2021-08-29] MEDS ORDERED: Acetaminophen 325 MG TAB PO PRN (14:37)
[2021-08-29 15:31] VITALS: BMI 28.9
[2021-08-29] MEDS ORDERED: Prevnar 13-Val Conj/PF 0.5 ML SYRINGE IM ONE (17:00)
[2021-08-29] MEDS: levETIRAcetam 500 MG TAB PO SCH (20:52)
[2021-08-30 05:55] LABS: #Basophils 0.1 thou/uL (0.0-0.2); #Eosinphils 0.3 thou/uL (0.0-0.7); #Monocytes 0.5 thou/uL (0.11-0.59); #Neutrophils 4.1 thou/uL (1.40-6.50); %Basophils 1.5 % (0.0-1.0); %Eosinophils 3.9 % (0.0-10.0); %Lymphocytes 28.9 % (21.0-51.0); %Monocytes 6.6 % (0.0-10.0); Hemoglobin 12.7 g/dL (12.0-16.0); Mean Corpuscular HGB CONC 33.5 g/dL (32.0-36.0); Mean Corpuscular Hemoglobin 32.1 pg (27.0-31.0); Mean Corpuscular Volume 95.9 fL (78.0-98.0); Mean Platelet Volume 6.6 fL (7.4-10.4); Platelet Count 272 thou/uL (130-400); RBC Distribution Width 11.8 % (11.5-14.5); Red Blood Cell (RBC) Count 3.96 mill/uL (4.20-5.40)
[2021-08-30 06:21] LABS: Anion Gap 8 mmol/L (10-20); BUN (Urea Nitrogen) 12 mg/dL (7.0-18.7); Calc. Creatinine Clearance 151 mL/min (70-130); Calcium 8.8 mg/dL (7.8-10.44); Carbon Dioxide 27 mmol/L (22-29); Chloride 108 mmol/L (98-107); Glucose 93 mg/dL (70-105); Potassium 4.1 mmol/L (3.5-5.1); Sodium 139 mmol/L (136-145)
[2021-08-30 08:38] VITALS: BP 95/65; TEMP 98.3
[2021-08-30] MEDS: levETIRAcetam 500 MG TAB PO SCH (08:38)
[2021-08-30] MEDS ORDERED: Enoxaparin Sodium 40 MG/0.4 ML SYRINGE SC SCH (09:00)
[2021-08-30] MEDS ORDERED: lamoTRIgine 25 MG TAB PO SCH (09:00)
[2021-08-30] MEDS ORDERED: Melatonin 3 MG TAB PO SCH (21:00)
[2021-08-30 21:45] LABS: SARS-CoV-2 PCR by NAA Not Detected (NotDetected)
== END 2021-08-30 09:35 | disposition home or self-care (01) ==
LOC: ERS 12:04 → MSONC 14:16
PROVIDERS: ADMIT Internal Medicine; ATTEND Internal Medicine
DX: G89.3 Neoplasm related pain (acute) (chronic) (principal); C50.919 Malignant neoplasm of unspecified site of unspecified female breast; C78.00 Secondary malignant neoplasm of unspecified lung; C78.7 Secondary malignant neoplasm of liver and intrahepatic bile duct; C79.51 Secondary malignant neoplasm of bone; G40.909 Epilepsy, unspecified, not intractable, without status epilepticus; G62.0 Drug-induced polyneuropathy; T45.1X5A Adverse effect of antineoplastic and immunosuppressive drugs, initial encounter; F17.210 Nicotine dependence, cigarettes, uncomplicated; M84.559D Pathological fracture in neoplastic disease, hip, unspecified, subsequent encounter for fracture with routine healing; Z79.899 Other long term (current) drug therapy; Z88.0 Allergy status to penicillin; Z88.8 Allergy status to other drugs, medicaments and biological substances; Z91.040 Latex allergy status; Z91.048 Other nonmedicinal substance allergy status; Z20.822 Contact with and (suspected) exposure to COVID-19
CPT/HCPCS: 72170; 80048; 80053; 85025; 85379; 96374; 96375; 96376; G0378; J1170; J1642; J1885; J2405; J3010; U0003; U0005

== ENCOUNTER 2021-11-09 09:08 | Outpatient (CLI) | payer OTHER | END 2021-11-09 09:09 | disposition home or self-care (01) | LOC: CT 09:08 | PROVIDERS: ATTEND Internal Medicine Hematology & Oncology | DX: C50.412 Malignant neoplasm of upper-outer quadrant of left female breast (principal); C79.01 Secondary malignant neoplasm of right kidney and renal pelvis; C78.00 Secondary malignant neoplasm of unspecified lung | CPT/HCPCS: 71260; 74177; 78306; A9503; Q9967 ==

== ENCOUNTER 2022-01-27 14:20 | Outpatient (CLI) | payer OTHER ==
[~2022-01-27 14:20] MED LIST changes: +Gadobenate Dimeglumine 529 MG/1 ML (20ML VIAL) ONE; -Iopamidol 370 76% 100 ML VIAL ONE
== END 2022-01-27 14:21 | disposition home or self-care (01) ==
LOC: MRI 14:20
PROVIDERS: ATTEND Psychiatry & Neurology Neurology
DX: G40.409 Other generalized epilepsy and epileptic syndromes, not intractable, without status epilepticus (principal)
CPT/HCPCS: 70553; A9577

== ENCOUNTER 2022-04-19 17:19 | Emergency (ER) | payer OTHER ==
[~2022-04-19 17:19] MED LIST changes: -Gadobenate Dimeglumine 529 MG/1 ML (20ML VIAL) ONE; +Iopamidol 370 76% 50 ML VIAL FS ONE
[2022-04-19 19:08] LABS: #Basophils 0.2 thou/uL (0.0-0.2); #Eosinphils 0.3 thou/uL (0.0-0.7); #Monocytes 0.7 thou/uL (0.11-0.59); #Neutrophils 5.8 thou/uL (1.40-6.50); %Basophils 1.7 % (0.0-1.0); %Eosinophils 2.7 % (0.0-10.0); %Lymphocytes 30.1 % (21.0-51.0); %Monocytes 7.2 % (0.0-10.0); %Neutrophils 58.3 % (42.0-75.0); Hemoglobin 12.3 g/dL (12.0-16.0); Mean Corpuscular HGB CONC 32.7 g/dL (32.0-36.0); Mean Corpuscular Hemoglobin 30.3 pg (27.0-31.0); Mean Corpuscular Volume 92.9 fL (78.0-98.0); Mean Platelet Volume 6.9 fL (7.4-10.4); Platelet Count 304 thou/uL (130-400); RBC Distribution Width 12.6 % (11.5-14.5); Red Blood Cell (RBC) Count 4.07 mill/uL (4.20-5.40)
[2022-04-19 19:18] LABS: BHCG - Serum Negative (NEGATIVE); Pregs Control Background? CLEAR/WHITE (CLR/WHITE); Pregs Control Bar Appear? YES (CONTROL BAR)
[2022-04-19 19:21] LABS: ALT (SGPT) 14 U/L (8-55); AST (SGOT) 19 U/L (5-34); Alkaline Phosphatase 93 U/L (40-110); Anion Gap 12 mmol/L (10-20); BUN (Urea Nitrogen) 8 mg/dL (7.0-18.7); Bilirubin, Total 0.2 mg/dL (0.2-1.2); Calc. Creatinine Clearance 0 mL/min (70-130); Calcium 9.3 mg/dL (7.8-10.44); Carbon Dioxide 24 mmol/L (22-29); Chloride 106 mmol/L (98-107); Estimated GFR 119; Globulin 2.8 g/dL (2.4-3.5); Glucose 92 mg/dL (70-105); Potassium 3.9 mmol/L (3.5-5.1); Protein, Total 6.8 g/dL (6.0-8.3); Sodium 138 mmol/L (136-145)
== END 2022-04-19 21:05 | disposition home or self-care (01) ==
LOC: ERS 17:19
DX: R20.2 Paresthesia of skin (principal); F17.210 Nicotine dependence, cigarettes, uncomplicated
CPT/HCPCS: 36415; 71275; 74177; 80053; 84703; 85025; Q9967

== ENCOUNTER 2022-05-06 09:40 | Outpatient (CLI) | payer OTHER | END 2022-05-06 09:41 | disposition home or self-care (01) | LOC: NM 09:40 | PROVIDERS: ATTEND Internal Medicine Hematology & Oncology | DX: C50.412 Malignant neoplasm of upper-outer quadrant of left female breast (principal); C79.01 Secondary malignant neoplasm of right kidney and renal pelvis; C78.00 Secondary malignant neoplasm of unspecified lung | CPT/HCPCS: 78306; 80053; 84439; 84443; 85025; A9503; J1642 ==

== ENCOUNTER 2023-03-27 17:59 | Emergency (ER) | payer MEDICARE, MEDICAID ==
[2023-03-27] MEDS ORDERED: Boostrix 0.5 ML (Tdap) VIAL (>/=7 yrs of age) ONE (18:50)
== END 2023-03-27 18:59 | disposition home or self-care (01) ==
LOC: ERS 17:59
DX: S61.412A Laceration without foreign body of left hand, initial encounter (principal); F17.210 Nicotine dependence, cigarettes, uncomplicated; Z23 Encounter for immunization; W18.30XA Fall on same level, unspecified, initial encounter
CPT/HCPCS: 12001; 90471; 90715

== ENCOUNTER 2023-04-11 13:46 | Outpatient (CLI) | payer MEDICARE, MEDICAID ==
[2023-04-11] MEDS ORDERED: Magnevist 469MG/ML 20 ML VIAL ONE (15:43)
== END 2023-04-11 13:47 | disposition home or self-care (01) ==
LOC: MRI 13:46
PROVIDERS: ATTEND Psychiatry & Neurology Neurology
DX: G40.409 Other generalized epilepsy and epileptic syndromes, not intractable, without status epilepticus (principal)
CPT/HCPCS: 70553; 95816; A9579

== ENCOUNTER 2023-05-23 14:35 | Outpatient (CLI) | payer MEDICARE, MEDICAID | END 2023-05-23 14:36 | disposition home or self-care (01) | LOC: RAD 14:35 | PROVIDERS: ATTEND Anesthesiology Pain Medicine | DX: M16.10 Unilateral primary osteoarthritis, unspecified hip (principal); Z98.890 Other specified postprocedural states; C50.412 Malignant neoplasm of upper-outer quadrant of left female breast; E07.9 Disorder of thyroid, unspecified | CPT/HCPCS: 36415; 72170; 80053; 84443 ==

== ENCOUNTER 2023-08-11 08:49 | Outpatient (CLI) | payer MEDICARE, MEDICAID ==
[2023-08-11] MEDS ORDERED: Iopamidol 370 76% 100 ML VIAL ONE (15:03)
== END 2023-08-11 08:50 | disposition home or self-care (01) ==
LOC: CT 08:49
PROVIDERS: ATTEND Internal Medicine Hematology & Oncology
DX: C50.919 Malignant neoplasm of unspecified site of unspecified female breast (principal); C79.51 Secondary malignant neoplasm of bone; C78.00 Secondary malignant neoplasm of unspecified lung; N83.201 Unspecified ovarian cyst, right side
CPT/HCPCS: 71260; 74177; 78306; A9503; J1642

== ENCOUNTER 2024-01-09 07:56 | Outpatient (CLI) | payer MEDICARE ==
[2024-01-09] MEDS ORDERED: Iopamidol 370 76% 100 ML VIAL ONE (12:14)
== END 2024-01-09 07:57 | disposition home or self-care (01) ==
LOC: CT 07:56
PROVIDERS: ATTEND Internal Medicine Hematology & Oncology
DX: C50.412 Malignant neoplasm of upper-outer quadrant of left female breast (principal); C79.51 Secondary malignant neoplasm of bone; C78.00 Secondary malignant neoplasm of unspecified lung; R91.1 Solitary pulmonary nodule; Z98.890 Other specified postprocedural states
CPT/HCPCS: 71260; 74177; 78306; A9503; J1642; Q9967

== ENCOUNTER 2025-02-24 16:04 | Outpatient (CLI) | payer MEDICARE, MEDICAID ==
[~2025-02-24 16:04] MED LIST changes: -Iopamidol 370 76% 50 ML VIAL FS ONE; +Iopamidol-370 76% 500 ML MDV (1 ML CHARGE) ONE
== END 2025-02-24 16:05 | disposition home or self-care (01) ==
LOC: CT 16:04
PROVIDERS: ATTEND Internal Medicine Hematology & Oncology
DX: C50.412 Malignant neoplasm of upper-outer quadrant of left female breast (principal); S32.402 Unspecified fracture of left acetabulum; Z96.642 Presence of left artificial hip joint; Z98.890 Other specified postprocedural states
CPT/HCPCS: 71260; 74177; Q9967